=== PATIENT | male | born 1935 | race Caucasian/White ===

== ENCOUNTER 2018-04-11 09:09 | Observation (INO) | payer MEDICARE, OTHER ==
[2018-04-11] MEDS ORDERED: Aspirin 81 MG Tab.Chew PO ONE (09:11)
--- NOTE | 2018-04-11 09:12 | EDM.PDOC ---
ED HPI GENERAL MEDICAL PROBLEM - General Stated Complaint: CHEST PAIN Time Seen by Provider: 04/11/18 09:12 Source of Information: Reports: Patient - History of Present Illness INITIAL COMMENTS - FREE TEXT/NARRATIVE: HISTORY AND PHYSICAL: History of present illness: [Patient is a diabetic with history of CABG in the remote past and one stent apparently presents with some intermittent chest pain that he rates 2 out of 10 go into his left arm today he had taken a dose of nitroglycerin which had resolved the pain, he currently rates pain 0 out of 10 and is in no distress no fever nausea vomiting chills sweats no shortness of breath or diaphoresis] Review of systems: As per history of present illness and below otherwise all systems reviewed and negative. Past medical history: As per history of present illness and as reviewed below otherwise noncontributory. Surgical history: As per history of present illness and as reviewed below otherwise noncontributory. Social history: No reported history of drug or alcohol abuse. Family history: As per history of present illness and as reviewed below otherwise noncontributory. Physical exam: HEENT: Atraumatic, normocephalic, pupils reactive, negative for conjunctival pallor or scleral icterus, mucous membranes moist, throat clear, neck supple, nontender, trachea midline. Lungs: Clear to auscultation, breath sounds equal bilaterally, chest nontender. Heart: S1S2, regular, negative for clicks, rubs, or JVD. Abdomen: Soft, nondistended, nontender. Negative for masses or hepatosplenomegaly. Negative for costovertebral tenderness. Pelvis: Stable nontender. Genitourinary: Deferred. Rectal: Deferred. Extremities: Atraumatic, negative for cords or calf pain. Neurovascular unremarkable. Neuro: Awake, alert, oriented. Cranial nerves II through XII unremarkable. Cerebellum unremarkable. Motor and sensory unremarkable throughout. Exam nonfocal. Diagnostics: [BC CMP UA troponin lipase INR EKG Chest 1 view ] Therapeutics: [ normal saline 1 25 mL per hour Aspirin 324 mg chewable ] Impression: [Chest pain] Chronic history of baseline Definitive disposition and diagnosis as appropriate pending reevaluation and review of above. - Related Data Allergies Allergy/AdvReac Type Severity Reaction Status Date / Time Evbrexa-Gwr-Dbc Reductase Allergy Nausea and Unverified 04/11/18 09:17 Inhibitor Vomiting Sulfa (Sulfonamide Allergy Nausea and Unverified 04/11/18 09:17 Antibiotics) Vomiting Home Meds: Home Meds Arginine HCl [l-Arginine] 1,000 mg PO BID 01/14/17 [History] Ascorbic Acid [Vitamin C] 1,000 mg PO DAILY 01/14/17 [History] Aspirin 81 mg PO Q2D 01/14/17 [History] Ergocalciferol (Vitamin D2) [Vitamin D2] 2,000 intnl unit PO DAILY 01/14/17 [ History] Folic Acid 0.8 mg PO DAILY 01/14/17 [History] Glucosamine [Glucosamine Sulfate] 500 mg PO BID 01/14/17 [History] Isosorbide Mononitrate [Imdur] 60 mg PO BID 01/14/17 [History] Metoprolol Tartrate 75 mg PO BID 01/14/17 [History] Multivitamin [Multi-Vitamin Daily] 1 tab PO DAILY 01/14/17 [History] Nitroglycerin [IJP: Nitroglycerin] 0.4 mg SL ASDIRECTED PRN 01/14/17 [History] Ramipril 2.5 mg PO BID 01/14/17 [History] Ubidecarenone [Co Q-10] 100 mg PO DAILY 04/11/18 [History] Vitamin E 200 units PO DAILY 04/11/18 [History] amLODIPine [Norvasc] 2.5 mg PO DAILY 04/11/18 [History] metFORMIN [Glucophage] 500 mg PO BIDMEALS 04/11/18 [History] Past Medical History HEENT History: Reports: Impaired Vision Other HEENT History: wears glasses Cardiovascular History: Reports: Aneurysm, Bypass, CAD, High Cholesterol, Hypertension, Prior Cardiac Arrest Other Cardiovascular History: 3 heart attacks, heart chamber dysfunction, aortic heart valve narrowing, leaky mitral valve, abdominal aortic aneurysm Respiratory History: Reports: Other (See Below) Other Respiratory History: dust related pneumonia Gastrointestinal History: Reports: Hiatal Hernia Genitourinary History: Reports: Other (See Below) Other Genitourinary History: "kidney damage" Endocrine/Metabolic History: Reports: Other (See Below) Other Endocrine/Metabolic History: "borderline diabetic" - Past Surgical History HEENT Surgical History: Reports: Cataract Surgery Cardiovascular Surgical History: Reports: Coronary Artery Bypass, Other (See Below) GI Surgical History: Reports: Hernia, Abdominal Social & Family History - Caffeine Use Caffeine Use: Reports: Coffee ED ROS GENERAL - Review of Systems Review Of Systems: ROS reveals no pertinent complaints other than HPI. ED EXAM, GENERAL - Physical Exam Exam: See Below Course - Vital Signs Last Recorded V/S: Last Vital Signs Temp 97.9 F 04/11/18 09:13 Pulse 84 04/11/18 09:13 Resp 16 04/11/18 09:13 BP 129/72 04/11/18 09:13 Pulse Ox 98 04/11/18 09:13 - Orders/Labs/Meds Orders: Active Orders 24 hr Category Date Time Status EKG Documentation Completion [RC] STAT Care 04/11/18 09:11 Active INR,PT,PROTHROMBIN TIME [COAG] Stat Lab 04/11/18 09:20 Received UA W/MICROSCOPIC [URIN] Stat Lab 04/11/18 09:11 Ordered Sodium Chloride 0.9% [Normal Saline] 1,000 ml Med 04/11/18 09:15 Active IV STAT Medication Orders Sodium Chloride (Normal Saline) 1,000 mls @ 125 mls/hr IV STAT TAMEKA Last Admin: 04/11/18 09:24 Dose: 125 mls/hr Labs: Laboratory Tests 04/11/18 04/11/18 Range/Units 09:20 09:20 WBC 7.58 (4.0-11.0) K/uL RBC 3.46 L (4.50-5.90) M/uL Hgb 11.3 L (13.0-17.0) g/dL Hct 34.9 L (38.0-50.0) % MCV 100.9 H (80.0-98.0) fL MCH 32.7 H (27.0-32.0) pg MCHC 32.4 (31.0-37.0) g/dL RDW Std Deviation 56.2 (28.0-62.0) fl RDW Coeff of Mark 16 H (11.0-15.0) % Plt Count 206 (150-400) K/uL MPV 9.70 (7.40-12.00) fL Neut % (Auto) 74.5 (48.0-80.0) % Lymph % (Auto) 14.1 L (16.0-40.0) % [place] % (Auto) 7.8 (0.0-15.0) % Eos % (Auto) 3.2 (0.0-7.0) % Baso % (Auto) 0.4 (0.0-1.5) % Neut # (Auto) 5.7 (1.4-5.7) K/uL Lymph # (Auto) 1.1 (0.6-2.4) K/uL [place] # (Auto) 0.6 (0.0-0.8) K/uL Eos # (Auto) 0.2 (0.0-0.7) K/uL Baso # (Auto) 0.0 (0.0-0.1) K/uL Nucleated RBC % 0.0 /100WBC Nucleated RBCs # 0 K/uL Sodium 137 (136-148) mmol/L Potassium 4.6 (3.5-5.1) mmol/L Chloride 105 (98-107) mmol/L Carbon Dioxide 22.6 (21.0-32.0) mmol/L BUN 37 H (7.0-18.0) mg/dL Creatinine 1.2 (0.8-1.3) mg/dL Est Cr Clr Drug Dosing 42.84 mL/min Estimated GFR (MDRD) 58.3 ml/min Glucose 154 H (74-106) mg/dL Calcium 9.3 (8.5-10.1) mg/dL Total Bilirubin 0.3 (0.2-1.0) mg/dL AST 22 (15-37) IU/L ALT 19 (14-63) IU/L Alkaline Phosphatase 90 (46-116) U/L Troponin I < 0.050 (0.000-0.056) ng/mL Total Protein 7.3 (6.4-8.2) g/dL Albumin 3.5 (3.4-5.0) g/dL Globulin 3.8 H (2.0-3.5) g/dL Albumin/Globulin Ratio 0.9 L (1.3-2.8) Lipase 259 (73-393) U/L Meds: Medications Generic Name Dose Route Start Last Admin Trade Name Freq PRN Reason Stop Dose Admin Sodium Chloride 1,000 mls @ 125 mls/hr 04/11/18 09:15 04/11/18 09:24 Normal Saline IV 125 mls/hr STAT TAMEKA Administration Discontinued Medications Generic Name Dose Route Start Last Admin Trade Name Freq PRN Reason Stop Dose Admin Aspirin 324 mg 04/11/18 09:11 04/11/18 09:24 Aspirin PO 04/11/18 09:12 324 mg ONETIME ONE Administration Departure - Departure Time of Disposition: 10:53 Disposition: Refer to Observation Condition: Fair Clinical Impression: Chest pain - Discharge Information - My Orders Last 24 Hours: My Active Orders 04/11/18 09:11 EKG Documentation Completion [RC] STAT UA W/MICROSCOPIC [URIN] Stat 04/11/18 09:15 Sodium Chloride 0.9% [Normal Saline] 1,000 ml IV STAT 04/11/18 09:20 INR,PT,PROTHROMBIN TIME [COAG] Stat - Assessment/Plan Last 24 Hours: My Active Orders 04/11/18 09:11 EKG Documentation Completion [RC] STAT UA W/MICROSCOPIC [URIN] Stat 04/11/18 09:15 Sodium Chloride 0.9% [Normal Saline] 1,000 ml IV STAT 04/11/18 09:20 INR,PT,PROTHROMBIN TIME [COAG] Stat
[2018-04-11] MEDS ORDERED: Sodium Chloride 0.9% 1,000 ML IV SCH (09:15)
--- NOTE | 2018-04-11 10:03 | CR ---
EXAMINATION: Portable chest radiograph. HISTORY: Pain. Comparison: 01/13/2017. FINDINGS: The trachea is midline. The heart is borderline in size. The cardiomediastinal silhouette is within n ormal limits. No pulmonary infiltrates, effusions or pneumothorax. Median sternotomy wires are noted. Osseous structures appear unremarkable. IMPRESSION: No acute cardiopulmonary process.
[2018-04-11 10:11] LABS: CHLORIDE,CL 105 mmol/L (98-107); SODIUM,NA 137 mmol/L (136-148)
[2018-04-11] MEDS ORDERED: Sodium Chloride 0.9% 10 ML Syringe FLUSH PRN (12:24)
[2018-04-11] MEDS ORDERED: Sodium Chloride 0.9% 2.5 ML Syringe FLUSH PRN (12:24)
[2018-04-11] MEDS ORDERED: Morphine 10 MG/ML Syringe IVPUSH PRN (12:24)
[2018-04-11] MEDS ORDERED: Enoxaparin 40 MG/0.4 ML Syringe SUBCUT SCH (12:30)
[2018-04-11] MEDS ORDERED: Nitroglycerin 2% Oint 1 GM UD Packet TOP PRN (12:58)
[2018-04-11 16:45] VITALS: BP 104/73
[2018-04-11] MEDS ORDERED: Nitroglycerin 0.4 MG Tab.SL SL PRN (18:29)
[2018-04-11] MEDS ORDERED: [UNRECOGNIZED DRUG - REMARK] PO SCH (21:00)
[2018-04-11] MEDS ORDERED: [UNRECOGNIZED DRUG - REMARK] PO SCH (21:00)
[2018-04-11] MEDS ORDERED: Metoprolol Tartrate 25 MG Tab PO SCH (21:00)
[2018-04-11] MEDS ORDERED: Isosorbide Mononitrate 60 MG Tab.ER PO SCH (21:00)
--- NOTE | 2018-04-11 21:51 | PCM.SN ---
- Free Text/Narrative Note: I was asked to see the patient at 8 pm, I went to see the patient with hospitalist. I had asked him about the history, and about the presenting symptoms. All of the sudden, he stated he was done with this, he stated clearly " I want to go home now", and he requested to be released and wrist band to be removed. The patient left without being examined by me and without complete history.
--- NOTE | 2018-04-12 00:18 | PCM.HP ---
H&P History of Present Illness - General Date of Service: 04/11/18 Admit Problem/Dx: Admission Diagnosis/Problem Admission Diagnosis/Problem Chest pain Patient 82 y old man with past medical history of DM, HTN, CABG 40 y ago , S/p MS 40 y ago who follows up with Doctor Lopez in [facility] presented to Er due to chest pain and palpitations for less than 1 minute , chest pain was rated 2/10, intensity , described as discomfort, no irradiation. Patient states that he called his Investment Executive and was told from his office to go to ER . Patient also states that he has a thoracic aortic aneurysm and he declined any surgeries and is being managed by Bp control and f/up. Source of Information: Patient History Limitations: Reports: No Limitations - History of Present Illness Onset of Symptoms: Reports: Today, Sudden Duration of Symptoms: Reports: Minutes: Location: Reports: Chest - Related Data Allergies/Adverse Reactions: Allergies Allergy/AdvReac Type Severity Reaction Status Date / Time Kjvoroq-Rkw-Hgr Reductase Allergy Nausea and Unverified 04/11/18 09:17 Inhibitor Vomiting Sulfa (Sulfonamide Allergy Nausea and Unverified 04/11/18 09:17 Antibiotics) Vomiting Home Medications: Home Meds Arginine HCl [l-Arginine] 1,000 mg PO BID 01/14/17 [History] Ascorbic Acid [Vitamin C] 1,000 mg PO DAILY 01/14/17 [History] Aspirin 81 mg PO Q2D 01/14/17 [History] Ergocalciferol (Vitamin D2) [Vitamin D2] 2,000 intnl unit PO DAILY 01/14/17 [ History] Folic Acid 0.8 mg PO DAILY 01/14/17 [History] Glucosamine [Glucosamine Sulfate] 500 mg PO BID 01/14/17 [History] Isosorbide Mononitrate [Imdur] 60 mg PO BID 01/14/17 [History] Metoprolol Tartrate 75 mg PO BID 01/14/17 [History] Multivitamin [Multi-Vitamin Daily] 1 tab PO DAILY 01/14/17 [History] Nitroglycerin [IJP: Nitroglycerin] 0.4 mg SL ASDIRECTED PRN 01/14/17 [History] Ramipril 2.5 mg PO BID 01/14/17 [History] Ubidecarenone [Co Q-10] 100 mg PO DAILY 04/11/18 [History] Vitamin E 200 units PO DAILY 04/11/18 [History] amLODIPine [Norvasc] 2.5 mg PO DAILY 04/11/18 [History] metFORMIN [Glucophage] 500 mg PO BIDMEALS 04/11/18 [History] Past Medical History HEENT History: Reports: Impaired Vision Other HEENT History: wears glasses Cardiovascular History: Reports: Aneurysm, Bypass, CAD, High Cholesterol, Hypertension, Prior Cardiac Arrest Other Cardiovascular History: 3 heart attacks, heart chamber dysfunction, aortic heart valve narrowing, leaky mitral valve, abdominal aortic aneurysm Respiratory History: Reports: Other (See Below) Other Respiratory History: dust related pneumonia Gastrointestinal History: Reports: Hiatal Hernia Genitourinary History: Reports: Other (See Below) Other Genitourinary History: "kidney damage" Endocrine/Metabolic History: Reports: Other (See Below) Other Endocrine/Metabolic History: "borderline diabetic" - Past Surgical History HEENT Surgical History: Reports: Cataract Surgery Cardiovascular Surgical History: Reports: Coronary Artery Bypass, Other (See Below) GI Surgical History: Reports: Hernia, Abdominal Oncologic Surgical History: Reports: None Social & Family History - Family History Cardiac: Reports: CAD Endocrine/Metabolic: Reports: Diabetes, Type I - Tobacco Use Smoking Status *Q: Never Smoker Years of Tobacco use: 50 Packs/Tins Daily: 1 Used Tobacco, but Quit: Yes Month/Year Tobacco Last Used: 10 years ago - Caffeine Use Caffeine Use: Reports: Coffee - Recreational Drug Use Recreational Drug Use: No H&P Review of Systems - Review of Systems: Review Of Systems: See Below General: Reports: No Symptoms HEENT: Reports: No Symptoms Pulmonary: Reports: No Symptoms Cardiovascular: Reports: Palpitations Gastrointestinal: Reports: No Symptoms Genitourinary: Reports: No Symptoms Musculoskeletal: Reports: No Symptoms Skin: Reports: No Symptoms Exam - Exam Exam: See Below - Vital Signs Vital Signs: Last Vital Signs Temp 97.6 F 04/11/18 16:24 Pulse 83 04/11/18 16:24 Resp 16 04/11/18 16:24 BP 104/73 04/11/18 16:43 Pulse Ox 97 04/11/18 16:24 Weight: 141 lb 12.116 oz - Exam General: Alert, Oriented HEENT: Conjunctiva Clear Neck: Supple, Trachea Midline Lungs: Clear to Auscultation, Normal Respiratory Effort Cardiovascular: Regular Rate, Regular Rhythm, Normal S1, Normal S2 GI/Abdominal Exam: Normal Bowel Sounds, Soft, Non-Tender, No Organomegaly Back Exam: Normal Inspection Extremities: Normal Inspection Skin: Warm, Dry Neurological: Cranial Nerves Intact Neuro Extensive - Mental Status: Alert, Oriented x3 Psychiatric: Alert - Patient Data Lab Results Last 24 hrs: Laboratory Results - last 24 hr 04/11/18 04/11/18 04/11/18 Range/Units 09:20 09:20 09:20 WBC 7.58 (4.0-11.0) K/uL RBC 3.46 L (4.50-5.90) M/uL Hgb 11.3 L (13.0-17.0) g/dL Hct 34.9 L (38.0-50.0) % MCV 100.9 H (80.0-98.0) fL MCH 32.7 H (27.0-32.0) pg MCHC 32.4 (31.0-37.0) g/dL RDW Std Deviation 56.2 (28.0-62.0) fl RDW Coeff of Mark 16 H (11.0-15.0) % Plt Count 206 (150-400) K/uL MPV 9.70 (7.40-12.00) fL Neut % (Auto) 74.5 (48.0-80.0) % Lymph % (Auto) 14.1 L (16.0-40.0) % [place] % (Auto) 7.8 (0.0-15.0) % Eos % (Auto) 3.2 (0.0-7.0) % Baso % (Auto) 0.4 (0.0-1.5) % Neut # (Auto) 5.7 (1.4-5.7) K/uL Lymph # (Auto) 1.1 (0.6-2.4) K/uL [place] # (Auto) 0.6 (0.0-0.8) K/uL Eos # (Auto) 0.2 (0.0-0.7) K/uL Baso # (Auto) 0.0 (0.0-0.1) K/uL Nucleated RBC % 0.0 /100WBC Nucleated RBCs # 0 K/uL INR 0.98 Sodium 137 (136-148) mmol/L Potassium 4.6 (3.5-5.1) mmol/L Chloride 105 (98-107) mmol/L Carbon Dioxide 22.6 (21.0-32.0) mmol/L BUN 37 H (7.0-18.0) mg/dL Creatinine 1.2 (0.8-1.3) mg/dL Est Cr Clr Drug Dosing 42.84 mL/min Estimated GFR (MDRD) 58.3 ml/min Glucose 154 H (74-106) mg/dL Calcium 9.3 (8.5-10.1) mg/dL Total Bilirubin 0.3 (0.2-1.0) mg/dL AST 22 (15-37) IU/L ALT 19 (14-63) IU/L Alkaline Phosphatase 90 (46-116) U/L Troponin I < 0.050 (0.000-0.056) ng/mL Total Protein 7.3 (6.4-8.2) g/dL Albumin 3.5 (3.4-5.0) g/dL Globulin 3.8 H (2.0-3.5) g/dL Albumin/Globulin Ratio 0.9 L (1.3-2.8) Lipase 259 (73-393) U/L 04/11/18 Range/Units 14:38 WBC (4.0-11.0) K/uL RBC (4.50-5.90) M/uL Hgb (13.0-17.0) g/dL Hct (38.0-50.0) % MCV (80.0-98.0) fL MCH (27.0-32.0) pg MCHC (31.0-37.0) g/dL RDW Std Deviation (28.0-62.0) fl RDW Coeff of Mark (11.0-15.0) % Plt Count (150-400) K/uL MPV (7.40-12.00) fL Neut % (Auto) (48.0-80.0) % Lymph % (Auto) (16.0-40.0) % [place] % (Auto) (0.0-15.0) % Eos % (Auto) (0.0-7.0) % Baso % (Auto) (0.0-1.5) % Neut # (Auto) (1.4-5.7) K/uL Lymph # (Auto) (0.6-2.4) K/uL [place] # (Auto) (0.0-0.8) K/uL Eos # (Auto) (0.0-0.7) K/uL Baso # (Auto) (0.0-0.1) K/uL Nucleated RBC % /100WBC Nucleated RBCs # K/uL INR Sodium (136-148) mmol/L Potassium (3.5-5.1) mmol/L Chloride (98-107) mmol/L Carbon Dioxide (21.0-32.0) mmol/L BUN (7.0-18.0) mg/dL Creatinine (0.8-1.3) mg/dL Est Cr Clr Drug Dosing mL/min Estimated GFR (MDRD) ml/min Glucose (74-106) mg/dL Calcium (8.5-10.1) mg/dL Total Bilirubin (0.2-1.0) mg/dL AST (15-37) IU/L ALT (14-63) IU/L Alkaline Phosphatase (46-116) U/L Troponin I < 0.050 (0.000-0.056) ng/mL Total Protein (6.4-8.2) g/dL Albumin (3.4-5.0) g/dL Globulin (2.0-3.5) g/dL Albumin/Globulin Ratio (1.3-2.8) Lipase (73-393) U/L Result Diagrams: 04/11/18 09:20 04/11/18 09:20 - Problem List (1) Chest pain SNOMED Code(s): 16950038 ICD Code: R07.9 - CHEST PAIN, UNSPECIFIED Status: Acute (2) Heart palpitations SNOMED Code(s): 98794775 ICD Code: R00.2 - PALPITATIONS Status: Acute (3) Anemia SNOMED Code(s): 236779312 ICD Code: D64.9 - ANEMIA, UNSPECIFIED Status: Acute (4) Aneurysm, thoracic aortic SNOMED Code(s): 335218724 ICD Code: I71.2 - THORACIC AORTIC ANEURYSM, WITHOUT RUPTURE Status: Acute (5) Hx of CABG SNOMED Code(s): 586158508, 440510168 ICD Code: Z95.1 - PRESENCE OF AORTOCORONARY BYPASS GRAFT Status: Acute Problem List Initiated/Reviewed/Updated: Yes Orders Last 24hrs: Active Orders 24 hr Category Date Time Status Admission Status [Patient Status] [ADT] Stat ADT 04/11/18 10:54 Active Cardiac Monitoring [RC] Q8H Care 04/11/18 12:26 Active EKG Documentation Completion [RC] STAT Care 04/11/18 09:11 Active Oxygen Therapy [RC] PRN Care 04/11/18 12:24 Active Ready for Discharge [RC] PER UNIT ROUTINE Care 04/11/18 20:50 Active Up ad Lisette [RC] ASDIRECTED Care 04/11/18 12:24 Active VTE/DVT Education [RC] PER UNIT ROUTINE Care 04/11/18 12:24 Active Vital Signs [RC] Q4H Care 04/11/18 12:24 Active Peripheral IV Insertion Adult [OM.PC] Routine Oth 04/11/18 12:24 Ordered Saline Lock Insert [OM.PC] Routine Oth 04/11/18 12:24 Ordered Sequential Compression Device [OM.PC] Per Unit Routine Oth 04/11/18 12:27 Ordered Resuscitation Status Routine Resus Stat 04/11/18 12:24 Ordered Assessment/Plan Comment:: Assessment and plan 1) Chest pain r/o acs- f/up 3 sets of cardiac enzymes , continue aspirin 81 mg po daily , lipid profile , Hemoglobin A1c 2) CAD- on metoprolol 75 mg po BID isosorbid mononitrate 60 mg po bid aspirin 81 mg po daily Ramipril 2.5 mg po daily, amlodipine 2.5 mg po daily 3) Palpitations- PVC on heart monitor, HR-60-80 at rest is going up to 100BPM with ambulation. Cardiology was asked to consult, patient refused. 4) DM - stable : Metformin 500 mg po BID. DVt prof : enoxaparin 40 mg sq. I have called patient Cardiologyst in [facility] and spoke with Tawnya at the patient request. She recommended us to fax his medical records from this hospitalization to his cardiologyst in [facility]. 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 Investment Executive from [place] went to discuss with patient and offered to review his medication and treatment but patient refused. 2 sets of cardiac enzymes were negative , with current presentation of symptoms I had low suspicion of ACS and patient was discharged home to f/up with his PCP and disaster response director.
[2018-04-12] MEDS ORDERED: metFORMIN 500 MG Tab PO SCH (08:00)
[2018-04-12] MEDS ORDERED: Aspirin 81 MG Tab.Chew PO SCH (09:00)
[2018-04-12] MEDS ORDERED: FOLIC ACID PO SCH (09:00)
[2018-04-12] MEDS ORDERED: [UNRECOGNIZED DRUG - REMARK] PO SCH (09:00)
[2018-04-12] MEDS ORDERED: Multivitamin Tab PO SCH (09:00)
[2018-04-12] MEDS ORDERED: [UNRECOGNIZED DRUG - REMARK] PO SCH (09:00)
[2018-04-12] MEDS ORDERED: Ascorbic Acid 500 MG Tab PO SCH (09:00)
[2018-04-12] MEDS ORDERED: [UNRECOGNIZED DRUG - REMARK] PO SCH (09:00)
[2018-04-12] MEDS ORDERED: amLODIPine 2.5 MG Tab PO SCH (09:00)
[2018-04-12] MEDS ORDERED: [UNRECOGNIZED DRUG - OTHER] PO SCH (09:00)
== END 2018-04-11 21:20 | disposition home or self-care (01) ==
LOC: MW.ED 09:09 → MW.MS 11:42
PROVIDERS: ADMIT Internal Medicine; ATTEND Internal Medicine
DX: R07.9 Chest pain, unspecified (principal); I49.3 Ventricular premature depolarization; E11.9 Type 2 diabetes mellitus without complications; I10 Essential (primary) hypertension; I25.2 Old myocardial infarction; I25.10 Atherosclerotic heart disease of native coronary artery without angina pectoris; E78.00 Pure hypercholesterolemia, unspecified; D64.9 Anemia, unspecified; I71.2 Thoracic aortic aneurysm, without rupture; Z95.1 Presence of aortocoronary bypass graft; Z88.8 Allergy status to other drugs, medicaments and biological substances; Z88.2 Allergy status to sulfonamides; Z79.899 Other long term (current) drug therapy; Z79.82 Long term (current) use of aspirin; Z79.84 Long term (current) use of oral hypoglycemic drugs
CPT/HCPCS: 36415; 71045; 80053; 83690; 84484; 85025; 85610; 93005; 96360; 96361; 99285; A9270; J7040; 96372; 99283; G0378; J1650

== ENCOUNTER 2018-05-18 04:22 | Observation (INO) | payer MEDICARE, OTHER ==
[2018-05-18] MEDS ORDERED: methylPREDNISolone Sodium Succinate 125 MG/2 ML SDV IVPUSH ONE (04:28)
[2018-05-18] MEDS ORDERED: Aspirin 81 MG Tab.Chew PO ONE (04:28)
[2018-05-18] MEDS ORDERED: Albuterol/Ipratropium 3.0-0.5 MG/3 ML Neb Soln NEB ONE (04:28)
[2018-05-18] MEDS ORDERED: Nitroglycerin 2% Oint 1 GM UD Packet TOP ONE (04:28)
[2018-05-18] MEDS ORDERED: Sodium Chloride 0.9% 10 ML Syringe FLUSH PRN (04:30)
[2018-05-18] MEDS ORDERED: Sodium Chloride 0.9% 2.5 ML Syringe FLUSH PRN (04:30)
--- NOTE | 2018-05-18 04:35 | EDM.PDOC ---
ED HPI GENERAL MEDICAL PROBLEM - General Stated Complaint: AMBULANCE Time Seen by Provider: 05/18/18 04:26 - History of Present Illness INITIAL COMMENTS - FREE TEXT/NARRATIVE: HISTORY AND PHYSICAL: History of present illness: The patient is an 82-year-old male who follows here with Dr. Moran as well as with Dr. 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 He called the ambulance for shortness of breath when this been going on for the last one week but seemed to be worse yesterday and for his COPD he does not have any inhalers to use. He fell like he was wheezing but he has not had a cough with phlegm fevers or abdominal pain vomiting or upper respiratory symptoms. The ambulance was deployed and in route he denied chest pain and when he arrived here initially he said he had no chest discomfort and that he told nursing a slight discomfort 12/01. The patient has nitroglycerin that he would take at home normally for his chest pain. Patient also says that he's been having some swelling of his ankles and feet for the last 1 week which is new for him. He has no leg pain or feet pain. The patient says he saw Dr. Lopez about a week ago and was told that his aortic valve was getting worse but it still was not critical and he did not have any medication change. Patient here in the ED is interactive and talkative and is more concerned about his breathing. Patient has been eating and drinking normally and does not have any urinary complaints. Please note that the patient was admitted here last month and after being in the hospital for a short time the hospitalist and the vrt mechanic went to see him and he asked to be released. I have also personally seen this patient back in December of this year when he came in with active chest pain and he was transferred to [facility] in [place] under the care of the hospitalist with Dr. Lopez involved. Review of systems: As per history of present illness and below otherwise all systems reviewed and negative. Past medical history: As per history of present illness and as reviewed below otherwise noncontributory. Surgical history: As per history of present illness and as reviewed below otherwise noncontributory. Social history: No reported history of drug or alcohol abuse. Family history: As per history of present illness and as reviewed below otherwise noncontributory. Physical exam: General: Well-developed well-nourished man who is nontoxic and not breathless on my evaluation. Vital signs are noted by me HEENT: Atraumatic, normocephalic, pupils reactive, negative for conjunctival pallor or scleral icterus, mucous membranes moist, throat clear, neck supple, nontender, trachea midline. Lungs: The patient has some abdominal work of breathing but no intercostal muscle use and no stridor but has expiratory wheezing throughout all lung truong and some scattered rales at the bases, breath sounds equal bilaterally, chest nontender. Heart: S1S2, regular rhythm and slightly tachycardic rate of my evaluation with some ectopy, a soft systolic ejection murmurs heard at left sternal border but is not an overwhelming AST murmur Abdomen: Soft, mild soft distention and hypoactive bowel sounds nontender. Negative for masses or hepatosplenomegaly. Negative for costovertebral tenderness. There is some tympany on percussion Pelvis: Stable nontender. Genitourinary: Deferred. Rectal: Deferred. Extremities: Atraumatic, negative for cords or calf pain. Neurovascular unremarkable. There is edema of his ankles and feet bilaterally but this does not extend into the pretibial area and the catheter have no leg asymmetry or tenderness. Neuro: Awake, alert, oriented. Cranial nerves II through XII unremarkable. Cerebellum unremarkable. Motor and sensory unremarkable throughout. Exam nonfocal. Skin: Overall pale appearance but there is no diaphoresis and skin turgor is normal and there are no rashes or lesions overtly seen Diagnostics: EKG CBC CMP INR and BNP troponin UA chest x-ray magnesium level Therapeutics: IV O2 monitor aspirin duo neb Solu-Medrol nitro paste Lasix Please note the patient refuses the aspirin because he says that if he takes more than just 81 mg a day he will get bloody noses and that is what his doctor told him to do. EKG of today was compared to the one performed on April 11 and the morphology is incredibly similar with the exception of the T-wave inversion previously seen in the lateral leads is now flattened. 0447: Currently patient is receiving his duo neb and just receive his Nitropaste and says he has no chest pain. His breathing is improving. 0530: TESTING results were discussed with the patient and the need for admission was also discussed with him. Although he is improving with his history of chronic renal disease aortic stenosis he needs gentle diuresis as an inpatient in the hospital. 0535: Case was discussed with our hospitalist Dr. Son and she accepts the patient for admission. She would like observation at this time. Impression: Dyspnea/CHF exacerbation, COPD exacerbation Definitive disposition and diagnosis as appropriate pending reevaluation and review of above. chest Pain Score (Numeric/FACES): 2 - Related Data Allergies Allergy/AdvReac Type Severity Reaction Status Date / Time [id number] Reductase Allergy Nausea and Unverified 05/18/18 04:42 Inhibitor Vomiting Sulfa (Sulfonamide Allergy Nausea and Unverified 05/18/18 04:42 Antibiotics) Vomiting Home Meds: Home Meds Arginine HCl [l-Arginine] 1,000 mg PO BID 01/14/17 [History] Ascorbic Acid [Vitamin C] 1,000 mg PO DAILY 01/14/17 [History] Aspirin 81 mg PO ASDIRECTED 01/14/17 [History] Folic Acid 800 mcg PO DAILY 01/14/17 [History] Glucosamine [Glucosamine Sulfate] 500 mg PO BID 01/14/17 [History] Isosorbide Mononitrate [Imdur] 60 mg PO BID 01/14/17 [History] Metoprolol Tartrate 75 mg PO BID 01/14/17 [History] Multivitamin [Multi-Vitamin Daily] 0 mg PO DAILY 01/14/17 [History] Nitroglycerin [IJP: Nitroglycerin] 0.4 mg SL ASDIRECTED PRN 01/14/17 [History] Ramipril 2.5 mg PO BID 01/14/17 [History] Vitamin E 200 units PO DAILY 04/11/18 [History] amLODIPine [Norvasc] 2.5 mg PO DAILY 04/11/18 [History] metFORMIN [Glucophage] 500 mg PO BIDMEALS 04/11/18 [History] Cholecalciferol (Vitamin D3) [Vitamin D3] 2,000 units PO DAILY 05/18/18 [History ] Ubidecarenone [Co Q-10] 100 mg PO DAILY 05/18/18 [History] Past Medical History HEENT History: Reports: Impaired Vision Other HEENT History: wears glasses Cardiovascular History: Reports: Aneurysm, Bypass, CAD, High Cholesterol, Hypertension, Prior Cardiac Arrest Other Cardiovascular History: 3 heart attacks, heart chamber dysfunction, aortic heart valve narrowing, leaky mitral valve, abdominal aortic aneurysm Respiratory History: Reports: Other (See Below) Other Respiratory History: dust related pneumonia Gastrointestinal History: Reports: Hiatal Hernia Genitourinary History: Reports: Other (See Below) Other Genitourinary History: "kidney damage" Endocrine/Metabolic History: Reports: Other (See Below) Other Endocrine/Metabolic History: "borderline diabetic" - Past Surgical History HEENT Surgical History: Reports: Cataract Surgery Cardiovascular Surgical History: Reports: Coronary Artery Bypass, Other (See Below) GI Surgical History: Reports: Hernia, Abdominal Oncologic Surgical History: Reports: None Social & Family History - Family History Cardiac: Reports: CAD Endocrine/Metabolic: Reports: Diabetes, Type I - Caffeine Use Caffeine Use: Reports: Coffee ED ROS GENERAL - Review of Systems Review Of Systems: ROS reveals no pertinent complaints other than HPI. ED EXAM, GENERAL - Physical Exam Exam: See Below (See dictation) Course - Vital Signs Last Recorded V/S: Last Vital Signs Temp 36.9 C 05/18/18 04:22 Pulse 105 H 05/18/18 05:26 Resp 20 05/18/18 05:26 BP 117/76 05/18/18 05:26 Pulse Ox 96 05/18/18 05:26 - Orders/Labs/Meds Orders: Active Orders 24 hr Category Date Time Status Patient Status [ADT] Stat ADT 05/18/18 05:40 Ordered Cardiac Monitoring [RC] . DIRECTED Care 05/18/18 04:29 Active EKG Documentation Completion [RC] STAT Care 05/18/18 04:29 Active Oxygen Therapy, ED [RC] ASDIRECTED Care 05/18/18 04:29 Active Pulse Oximetry [RC] ASDIRECTED Care 05/18/18 04:29 Active RT Aerosol Therapy [RC] ASDIRECTED Care 05/18/18 04:30 Active Chest 1V Frontal [CR] Stat Exams 05/18/18 04:30 Taken UA W/MICROSCOPIC [URIN] Stat Lab 05/18/18 04:29 Ordered Sodium Chloride 0.9% [Saline Flush] Med 05/18/18 04:30 Active 10 ml FLUSH ASDIRECTED PRN Sodium Chloride 0.9% [Saline Flush] Med 05/18/18 04:30 Active 2.5 ml FLUSH ASDIRECTED PRN Saline Lock Insert [OM.PC] Stat Oth 05/18/18 04:29 Ordered Medication Orders Sodium Chloride (Saline Flush) 10 ml FLUSH ASDIRECTED PRN PRN Reason: Keep Vein Open Sodium Chloride (Saline Flush) 2.5 ml FLUSH ASDIRECTED PRN PRN Reason: Keep Vein Open Labs: Laboratory Tests 05/18/18 05/18/18 05/18/18 Range/Units 04:30 04:30 04:30 WBC 13.05 H (4.0-11.0) K/uL RBC 3.60 L (4.50-5.90) M/uL Hgb 12.6 L (13.0-17.0) g/dL Hct 37.5 L (38.0-50.0) % MCV 104.2 H (80.0-98.0) fL MCH 35.0 H (27.0-32.0) pg MCHC 33.6 (31.0-37.0) g/dL RDW Std Deviation 58.9 (28.0-62.0) fl RDW Coeff of Mark 16 H (11.0-15.0) % Plt Count 190 (150-400) K/uL MPV 10.20 (7.40-12.00) fL Neut % (Auto) 80.1 H (48.0-80.0) % Lymph % (Auto) 13.0 L (16.0-40.0) % [place] % (Auto) 5.1 (0.0-15.0) % Eos % (Auto) 1.4 (0.0-7.0) % Baso % (Auto) 0.4 (0.0-1.5) % Neut # (Auto) 10.5 H (1.4-5.7) K/uL Lymph # (Auto) 1.7 (0.6-2.4) K/uL [place] # (Auto) 0.7 (0.0-0.8) K/uL Eos # (Auto) 0.2 (0.0-0.7) K/uL Baso # (Auto) 0.1 (0.0-0.1) K/uL Nucleated RBC % 0.0 /100WBC Nucleated RBCs # 0 K/uL INR 1.02 Sodium 141 (136-148) mmol/L Potassium 4.0 (3.5-5.1) mmol/L Chloride 104 (98-107) mmol/L Carbon Dioxide 21.7 (21.0-32.0) mmol/L BUN 34 H (7.0-18.0) mg/dL Creatinine 1.4 H (0.8-1.3) mg/dL Est Cr Clr Drug Dosing 35.24 mL/min Estimated GFR (MDRD) 48.8 ml/min Glucose 198 H (74-106) mg/dL Calcium 9.2 (8.5-10.1) mg/dL Magnesium 1.9 (1.8-2.4) mg/dL Total Bilirubin 0.6 (0.2-1.0) mg/dL AST 26 (15-37) IU/L ALT 36 (14-63) IU/L Alkaline Phosphatase 97 (46-116) U/L Troponin I < 0.050 (0.000-0.056) ng/mL B-Natriuretic Peptide (<100) PG/ML Total Protein 7.7 (6.4-8.2) g/dL Albumin 4.0 (3.4-5.0) g/dL Globulin 3.7 H (2.0-3.5) g/dL Albumin/Globulin Ratio 1.1 L (1.3-2.8) 05/18/18 Range/Units 04:30 WBC (4.0-11.0) K/uL RBC (4.50-5.90) M/uL Hgb (13.0-17.0) g/dL Hct (38.0-50.0) % MCV (80.0-98.0) fL MCH (27.0-32.0) pg MCHC (31.0-37.0) g/dL RDW Std Deviation (28.0-62.0) fl RDW Coeff of Mark (11.0-15.0) % Plt Count (150-400) K/uL MPV (7.40-12.00) fL Neut % (Auto) (48.0-80.0) % Lymph % (Auto) (16.0-40.0) % [place] % (Auto) (0.0-15.0) % Eos % (Auto) (0.0-7.0) % Baso % (Auto) (0.0-1.5) % Neut # (Auto) (1.4-5.7) K/uL Lymph # (Auto) (0.6-2.4) K/uL [place] # (Auto) (0.0-0.8) K/uL Eos # (Auto) (0.0-0.7) K/uL Baso # (Auto) (0.0-0.1) K/uL Nucleated RBC % /100WBC Nucleated RBCs # K/uL INR Sodium (136-148) mmol/L Potassium (3.5-5.1) mmol/L Chloride (98-107) mmol/L Carbon Dioxide (21.0-32.0) mmol/L BUN (7.0-18.0) mg/dL Creatinine (0.8-1.3) mg/dL Est Cr Clr Drug Dosing mL/min Estimated GFR (MDRD) ml/min Glucose (74-106) mg/dL Calcium (8.5-10.1) mg/dL Magnesium (1.8-2.4) mg/dL Total Bilirubin (0.2-1.0) mg/dL AST (15-37) IU/L ALT (14-63) IU/L Alkaline Phosphatase (46-116) U/L Troponin I (0.000-0.056) ng/mL B-Natriuretic Peptide 2464 H (<100) PG/ML Total Protein (6.4-8.2) g/dL Albumin (3.4-5.0) g/dL Globulin (2.0-3.5) g/dL Albumin/Globulin Ratio (1.3-2.8) Meds: Medications Generic Name Dose Route Start Last Admin Trade Name Freq PRN Reason Stop Dose Admin Sodium Chloride 10 ml 05/18/18 04:30 Saline Flush FLUSH ASDIRECTED PRN Keep Vein Open Sodium Chloride 2.5 ml 05/18/18 04:30 Saline Flush FLUSH ASDIRECTED PRN Keep Vein Open Discontinued Medications Generic Name Dose Route Start Last Admin Trade Name Douglasq PRN Reason Stop Dose Admin Albuterol/Ipratropium 3 ml 05/18/18 04:28 05/18/18 04:39 Duoneb 3.0-0.5 Mg/3 Ml NEB 05/18/18 04:29 3 ml ONETIME ONE Administration Aspirin 324 mg 05/18/18 04:28 05/18/18 04:46 Aspirin PO 05/18/18 04:29 Not Given ONETIME ONE Furosemide 20 mg 05/18/18 05:32 05/18/18 05:41 Lasix IVPUSH 05/18/18 05:33 20 mg NOW ONE Administration Methylprednisolone Sodium Succinate 125 mg 05/18/18 04:28 05/18/18 04:39 Solu-Medrol IVPUSH 05/18/18 04:29 125 mg ONETIME ONE Administration Nitroglycerin 0.5 gm 05/18/18 04:28 05/18/18 04:39 Nitro-Bid 2% TOP 05/18/18 04:29 0.5 gm ONETIME ONE Administration Departure - Departure Time of Disposition: 05:46 Disposition: Refer to Observation Condition: Good Clinical Impression: COPD exacerbation, Dyspnea and respiratory abnormalities CHF exacerbation Qualifiers: Heart failure type: unspecified Qualified Code(s): I50.9 - Heart failure, unspecified - Discharge Information Referrals: PCP,None [Primary Care Provider] - - My Orders Last 24 Hours: My Active Orders 05/18/18 04:29 Cardiac Monitoring [RC] . DIRECTED EKG Documentation Completion [RC] STAT Oxygen Therapy, ED [RC] ASDIRECTED Pulse Oximetry [RC] ASDIRECTED UA W/MICROSCOPIC [URIN] Stat Saline Lock Insert [OM.PC] Stat 05/18/18 04:30 RT Aerosol Therapy [RC] ASDIRECTED Chest 1V Frontal [CR] Stat Sodium Chloride 0.9% [Saline Flush] 10 ml FLUSH ASDIRECTED PRN Sodium Chloride 0.9% [Saline Flush] 2.5 ml FLUSH ASDIRECTED PRN 05/18/18 05:40 Patient Status [ADT] Stat - Assessment/Plan Last 24 Hours: My Active Orders 05/18/18 04:29 Cardiac Monitoring [RC] . DIRECTED EKG Documentation Completion [RC] STAT Oxygen Therapy, ED [RC] ASDIRECTED Pulse Oximetry [RC] ASDIRECTED UA W/MICROSCOPIC [URIN] Stat Saline Lock Insert [OM.PC] Stat 05/18/18 04:30 RT Aerosol Therapy [RC] ASDIRECTED Chest 1V Frontal [CR] Stat Sodium Chloride 0.9% [Saline Flush] 10 ml FLUSH ASDIRECTED PRN Sodium Chloride 0.9% [Saline Flush] 2.5 ml FLUSH ASDIRECTED PRN 05/18/18 05:40 Patient Status [ADT] Stat
[2018-05-18 04:59] LABS: CHLORIDE,CL 104 mmol/L (98-107); SODIUM,NA 141 mmol/L (136-148)
[2018-05-18] MEDS ORDERED: Furosemide 40 MG/4 ML VIAL IVPUSH ONE (05:32)
[2018-05-18] MEDS ORDERED: Levalbuterol HCl 1.25 MG/3 ML Neb NEB PRN (06:12)
--- NOTE | 2018-05-18 08:00 | PCM.HP ---
H&P History of Present Illness - General Date of Service: 05/18/18 Admit Problem/Dx: Admission Diagnosis/Problem Admission Diagnosis/Problem CHF, Congestive heart failure Source of Information: Patient, Old Records History Limitations: Reports: No Limitations - History of Present Illness Initial Comments - Free Text/Narative: This 82 year old male with pmh of HTN, CHF, CABG 10 years ago, DM type 2, COPD, aortic stenosis, CKD, and AAA presented to the ED early this morning with complaints of shortness of breath and wheezing. He also had some vague complaints of chest pressure and pain. He reports he noticed the last few weeks his legs were becoming more swollen and he noticed his weight was elevating as well. Just last night he noticed the shortness of breath and wheezing to worsen. He denies palpitations. No cough and no phlegm production. He just saw his senior staff accountant Dr Lopez last week for follow up. He did show him his legs, but he mentioned to him to just watch them. He also had an ECHO, which he said Dr Lopez said his aortic stenosis worsened slightly, but there would be nothing to do about it yet. Elie denies oxygen use at home. He denies abdominal pain, urinary troubles or leg pain. No focal neurological deficits. he rpeorts he is good with his diet and doesn't add any salt and has eating many salty foods recently. He reports not taking baby ASA daily due to nose bleeds, "I take it every once in awhile," Reports Dr Lopez is aware and is ok with this. In the ED slight leukocytosis noted 13,050, hgb 12.6, BUN 34, C 1.4 (which are at baseline), BNP 2464, UA negative. CXR revealed stable cardiomegaly with possible congestive changes. EKG revealed SR with LVH some non-specific t wave abnormalities, similar to previous EKGs. He was admitted observation with CHF exacerbation. PCP, Dr Moran Cardiology, Dr Lopez chest Pain Score (Numeric/FACES): 2 - Related Data Allergies/Adverse Reactions: Allergies Allergy/AdvReac Type Severity Reaction Status Date / Time Sulfa (Sulfonamide Allergy Severe Nausea and Unverified 05/18/18 06:36 Antibiotics) Vomiting Ydudreh-Gia-Eqk Reductase Allergy Mild Renal Unverified 05/18/18 06:36 Inhibitor Failure Home Medications: Home Meds Arginine HCl [l-Arginine] 1,000 mg PO BID 01/14/17 [History] Ascorbic Acid [Vitamin C] 1,000 mg PO DAILY 01/14/17 [History] Aspirin 81 mg PO ASDIRECTED 01/14/17 [History] Folic Acid 800 mcg PO DAILY 01/14/17 [History] Glucosamine [Glucosamine Sulfate] 500 mg PO BID 01/14/17 [History] Isosorbide Mononitrate [Imdur] 60 mg PO BID 01/14/17 [History] Metoprolol Tartrate 75 mg PO BID 01/14/17 [History] Multivitamin [Multi-Vitamin Daily] 0 mg PO DAILY 01/14/17 [History] Nitroglycerin [IJP: Nitroglycerin] 0.4 mg SL ASDIRECTED PRN 01/14/17 [History] Ramipril 2.5 mg PO BID 01/14/17 [History] Vitamin E 200 units PO DAILY 04/11/18 [History] amLODIPine [Norvasc] 2.5 mg PO DAILY 04/11/18 [History] metFORMIN [Glucophage] 500 mg PO BIDMEALS 04/11/18 [History] Cholecalciferol (Vitamin D3) [Vitamin D3] 2,000 units PO DAILY 05/18/18 [History ] Ubidecarenone [Co Q-10] 100 mg PO DAILY 05/18/18 [History] Past Medical History HEENT History: Reports: Impaired Vision Other HEENT History: wears glasses Cardiovascular History: Reports: Aneurysm, Bypass, CAD, Heart Failure, High Cholesterol, Hypertension, Prior Cardiac Arrest Other Cardiovascular History: 3 heart attacks, heart chamber dysfunction, aortic heart valve narrowing, leaky mitral valve, abdominal aortic aneurysm Respiratory History: Reports: COPD. Denies: Asthma Gastrointestinal History: Reports: Hiatal Hernia Genitourinary History: Reports: Chronic Renal Insuffiency Musculoskeletal History: Reports: Back Pain, Chronic Psychiatric History: Reports: None Endocrine/Metabolic History: Reports: Diabetes, Type II - Infectious Disease History Infectious Disease History: Reports: Chicken Pox - Past Surgical History HEENT Surgical History: Reports: Cataract Surgery Cardiovascular Surgical History: Reports: Coronary Artery Bypass, Other (See Below) Respiratory Surgical History: Reports: None GI Surgical History: Reports: Hernia, Abdominal Male Surgical History: Reports: None Musculoskeletal Surgical History: Reports: None Oncologic Surgical History: Reports: None Social & Family History - Family History Family Medical History: Noncontributory Cardiac: Reports: CAD Respiratory: Reports: COPD GI: Reports: None : Reports: None Musculoskeletal: Reports: Arthritis, Back pain, Chronic Endocrine/Metabolic: Reports: Diabetes, type II - Tobacco Use Smoking Status *Q: Former Smoker Years of Tobacco use: 50 Used Tobacco, but Quit: Yes Month/Year Tobacco Last Used: 04/2008 Second Hand Smoke Exposure: No - Caffeine Use Caffeine Use: Reports: Coffee, Tea - Alcohol Use Alcohol Use History: No - Recreational Drug Use Recreational Drug Use: No - Living Situation & Occupation Occupation: Retired H&P Review of Systems - Review of Systems: Review Of Systems: See Below General: Reports: No Symptoms. Denies: Fever, Chills, Malaise, Weakness HEENT: Reports: No Symptoms. Denies: Headaches, Sinus Congestion, Sore Throat Pulmonary: Reports: Shortness of Breath (but now improved since arriving to the ED), Wheezing. Denies: Cough, Sputum Cardiovascular: Reports: Dyspnea on Exertion, Orthopnea, Edema. Denies: Chest Pain, Palpitations, Lightheadedness, Syncope Gastrointestinal: Reports: No Symptoms. Denies: Abdominal Pain, Black Stool, Bloody Stool, Nausea, Vomiting Genitourinary: Reports: No Symptoms. Denies: Dysuria, Frequency, Burning Musculoskeletal: Reports: No Symptoms Skin: Reports: No Symptoms Psychiatric: Reports: No Symptoms Neurological: Reports: No Symptoms Hematologic/Lymphatic: Reports: No Symptoms Immunologic: Reports: No Symptoms Exam - Exam Exam: See Below - Vital Signs Vital Signs: Last Vital Signs Temp 97.9 F 05/18/18 06:15 Pulse 100 05/18/18 06:15 Resp 18 05/18/18 06:15 BP 100/73 05/18/18 06:15 Pulse Ox 94 L 05/18/18 06:15 Weight: 65.726 kg - Exam General: Alert, Oriented, Cooperative HEENT: Conjunctiva Clear, Posterior Pharynx Clear, Pupils Equal Neck: Supple, Trachea Midline. No: JVD Lungs: Crackles (fine crackles to RL base) Cardiovascular: Regular Rate, Regular Rhythm, Normal S1, Normal S2 GI/Abdominal Exam: Normal Bowel Sounds, Soft, Non-Tender Extremities: Normal Inspection, Normal Range of Motion, Non-Tender, Pedal Edema (+2 pitting edema to bilateral lower legs) Skin: Warm, Dry, Intact Neurological: Cranial Nerves Intact Neuro Extensive - Mental Status: Alert, Oriented x3, Normal Mood/Affect Neuro Extensive - Motor, Sensory, Reflexes: CN II-XII Intact Psychiatric: Alert, Normal Affect, Normal Mood - Patient Data Lab Results Last 24 hrs: Laboratory Results - last 24 hr 05/18/18 05/18/18 05/18/18 Range/Units 04:30 04:30 04:30 WBC 13.05 H (4.0-11.0) K/uL RBC 3.60 L (4.50-5.90) M/uL Hgb 12.6 L (13.0-17.0) g/dL Hct 37.5 L (38.0-50.0) % MCV 104.2 H (80.0-98.0) fL MCH 35.0 H (27.0-32.0) pg MCHC 33.6 (31.0-37.0) g/dL RDW Std Deviation 58.9 (28.0-62.0) fl RDW Coeff of Mark 16 H (11.0-15.0) % Plt Count 190 (150-400) K/uL MPV 10.20 (7.40-12.00) fL Neut % (Auto) 80.1 H (48.0-80.0) % Lymph % (Auto) 13.0 L (16.0-40.0) % [place] % (Auto) 5.1 (0.0-15.0) % Eos % (Auto) 1.4 (0.0-7.0) % Baso % (Auto) 0.4 (0.0-1.5) % Neut # (Auto) 10.5 H (1.4-5.7) K/uL Lymph # (Auto) 1.7 (0.6-2.4) K/uL [place] # (Auto) 0.7 (0.0-0.8) K/uL Eos # (Auto) 0.2 (0.0-0.7) K/uL Baso # (Auto) 0.1 (0.0-0.1) K/uL Nucleated RBC % 0.0 /100WBC Nucleated RBCs # 0 K/uL INR 1.02 Sodium 141 (136-148) mmol/L Potassium 4.0 (3.5-5.1) mmol/L Chloride 104 (98-107) mmol/L Carbon Dioxide 21.7 (21.0-32.0) mmol/L BUN 34 H (7.0-18.0) mg/dL Creatinine 1.4 H (0.8-1.3) mg/dL Est Cr Clr Drug Dosing 35.24 mL/min Estimated GFR (MDRD) 48.8 ml/min Glucose 198 H (74-106) mg/dL Calcium 9.2 (8.5-10.1) mg/dL Magnesium 1.9 (1.8-2.4) mg/dL Total Bilirubin 0.6 (0.2-1.0) mg/dL AST 26 (15-37) IU/L ALT 36 (14-63) IU/L Alkaline Phosphatase 97 (46-116) U/L Troponin I < 0.050 (0.000-0.056) ng/mL B-Natriuretic Peptide (<100) PG/ML Total Protein 7.7 (6.4-8.2) g/dL Albumin 4.0 (3.4-5.0) g/dL Globulin 3.7 H (2.0-3.5) g/dL Albumin/Globulin Ratio 1.1 L (1.3-2.8) Urine Color Urine Appearance Urine pH (5.0-8.0) Ur Specific [place] (1.001-1.035) Urine Protein (NEGATIVE) mg/dL Urine Glucose (UA) (NEGATIVE) mg/dL Urine Ketones (NEGATIVE) mg/dL Urine Occult Blood (NEGATIVE) Urine Nitrite (NEGATIVE) Urine Bilirubin (NEGATIVE) Urine Urobilinogen (<2.0) EU/dL Ur Leukocyte Esterase (NEGATIVE) Urine RBC (0-2/HPF) Urine WBC (0-5/HPF) Ur Epithelial Cells (NONE-FEW) Amorphous Sediment (NEGATIVE) Urine Bacteria (NEGATIVE) Urine Mucus (NONE-MOD) 05/18/18 05/18/18 Range/Units 04:30 06:30 WBC (4.0-11.0) K/uL RBC (4.50-5.90) M/uL Hgb (13.0-17.0) g/dL Hct (38.0-50.0) % MCV (80.0-98.0) fL MCH (27.0-32.0) pg MCHC (31.0-37.0) g/dL RDW Std Deviation (28.0-62.0) fl RDW Coeff of Mark (11.0-15.0) % Plt Count (150-400) K/uL MPV (7.40-12.00) fL Neut % (Auto) (48.0-80.0) % Lymph % (Auto) (16.0-40.0) % [place] % (Auto) (0.0-15.0) % Eos % (Auto) (0.0-7.0) % Baso % (Auto) (0.0-1.5) % Neut # (Auto) (1.4-5.7) K/uL Lymph # (Auto) (0.6-2.4) K/uL [place] # (Auto) (0.0-0.8) K/uL Eos # (Auto) (0.0-0.7) K/uL Baso # (Auto) (0.0-0.1) K/uL Nucleated RBC % /100WBC Nucleated RBCs # K/uL INR Sodium (136-148) mmol/L Potassium (3.5-5.1) mmol/L Chloride (98-107) mmol/L Carbon Dioxide (21.0-32.0) mmol/L BUN (7.0-18.0) mg/dL Creatinine (0.8-1.3) mg/dL Est Cr Clr Drug Dosing mL/min Estimated GFR (MDRD) ml/min Glucose (74-106) mg/dL Calcium (8.5-10.1) mg/dL Magnesium (1.8-2.4) mg/dL Total Bilirubin (0.2-1.0) mg/dL AST (15-37) IU/L ALT (14-63) IU/L Alkaline Phosphatase (46-116) U/L Troponin I (0.000-0.056) ng/mL B-Natriuretic Peptide 2464 H (<100) PG/ML Total Protein (6.4-8.2) g/dL Albumin (3.4-5.0) g/dL Globulin (2.0-3.5) g/dL Albumin/Globulin Ratio (1.3-2.8) Urine Color YELLOW Urine Appearance CLEAR Urine pH 5.5 (5.0-8.0) Ur Specific [place] 1.020 (1.001-1.035) Urine Protein TRACE (NEGATIVE) mg/dL Urine Glucose (UA) NEGATIVE (NEGATIVE) mg/dL Urine Ketones NEGATIVE (NEGATIVE) mg/dL Urine Occult Blood NEGATIVE (NEGATIVE) Urine Nitrite NEGATIVE (NEGATIVE) Urine Bilirubin NEGATIVE (NEGATIVE) Urine Urobilinogen 0.2 (<2.0) EU/dL Ur Leukocyte Esterase SMALL (NEGATIVE) Urine RBC 0-2 (0-2/HPF) Urine WBC 5-8 (0-5/HPF) Ur Epithelial Cells RARE (NONE-FEW) Amorphous Sediment NOT SEEN (NEGATIVE) Urine Bacteria FEW (NEGATIVE) Urine Mucus NOT SEEN (NONE-MOD) Result Diagrams: 05/18/18 04:30 05/18/18 04:30 *Q Meaningful Use (ADM) - VTE Risk Assess *Q Each Risk Factor Represents 1 Point: Swollen Legs, Current, Congestive heart failure (CHF), Abnormal Pulmonary Function (COPD) Total Score 1 Point Risk Factors: 3 Each Risk Factor Represents 2 Points: None Total Score 2 Point Risk Factors: 0 Each Risk Factor Represents 3 Points: Age 75 Years or Greater Total Score 3 Point Risk Factors: 3 Each Risk Factor Represents 5 Points: None Total Score 5 Point Risk Factors: 0 Venous Thromboembolism Risk Factor Score *Q: 6 - Problem List (1) CHF exacerbation SNOMED Code(s): 00371878 ICD Code: I50.9 - HEART FAILURE, UNSPECIFIED Status: Acute Current Visit : Yes Qualifiers: Heart failure type: diastolic Qualified Code(s): I50.33 - Acute on chronic diastolic (congestive) heart failure (2) COPD (chronic obstructive pulmonary disease) SNOMED Code(s): 92129653 ICD Code: J44.9 - CHRONIC OBSTRUCTIVE PULMONARY DISEASE, UNSPECIFIED Status : Acute Current Visit: Yes (3) AAA (abdominal aortic aneurysm) SNOMED Code(s): 285098208 ICD Code: I71.4 - ABDOMINAL AORTIC ANEURYSM, WITHOUT RUPTURE Status: Acute Current Visit: Yes (4) Aortic stenosis SNOMED Code(s): 47033896 ICD Code: I35.0 - NONRHEUMATIC AORTIC (VALVE) STENOSIS Status: Acute Current Visit: Yes (5) HTN (hypertension) SNOMED Code(s): 66460697 ICD Code: I10 - ESSENTIAL (PRIMARY) HYPERTENSION Status: Acute Current Visit: Yes (6) CKD (chronic kidney disease) SNOMED Code(s): 475110872 ICD Code: N18.9 - CHRONIC KIDNEY DISEASE, UNSPECIFIED Status: Acute Current Visit: Yes (7) PVD (peripheral vascular disease) SNOMED Code(s): 385464525 ICD Code: I73.9 - PERIPHERAL VASCULAR DISEASE, UNSPECIFIED Status: Acute Current Visit: Yes (8) Hx of CABG SNOMED Code(s): 839316440, 344039740 ICD Code: Z95.1 - PRESENCE OF AORTOCORONARY BYPASS GRAFT Status: Acute Current Visit: No Problem List Initiated/Reviewed/Updated: Yes Orders Last 24hrs: Active Orders 24 hr Category Date Time Status Patient Status [ADT] Stat ADT 05/18/18 05:40 Active Blood Glucose Check, Bedside [RC] TIDAC Care 05/18/18 08:00 Ordered Cardiac Monitoring [RC] Q8H Care 05/18/18 06:03 Active Communication Order [RC] ROUTINE Care 05/18/18 07:58 Ordered Height and Weight [RC] DAILY Care 05/18/18 07:59 Ordered Intake and Output Strict [RC] ASDIRECTED Care 05/18/18 07:59 Ordered Notify Provider Consults [RC] ASDIRECTED Care 05/18/18 06:14 Active RT Aerosol Therapy [RC] ASDIRECTED Care 05/18/18 04:30 Active RT Aerosol Therapy [RC] ASDIRECTED Care 05/18/18 06:12 Active Consult to Physician [CONS] Stat Cons 05/18/18 06:13 Active 2 Gram Sodium Diet [DIET] Diet 05/18/18 Breakfast Active Chest 1V Frontal [CR] Stat Exams 05/18/18 04:30 Taken TROPONIN I [CHEM] Routine Lab 05/18/18 10:30 Ordered TROPONIN I [CHEM] Routine Lab 05/18/18 16:30 Ordered UA W/MICROSCOPIC [URIN] Stat Lab 05/18/18 06:30 Ordered Furosemide [Lasix] Med 05/18/18 17:00 Active 40 mg IVPUSH Q12H Insulin Aspart [NovoLOG] Med 05/18/18 11:30 Ordered See Protocol SUBCUT TIDAC Levalbuterol HCl [Xopenex] Med 05/18/18 06:12 Active 1.25 mg NEB Q4HRRT PRN Sodium Chloride 0.9% [Saline Flush] Med 05/18/18 04:30 Active 10 ml FLUSH ASDIRECTED PRN Sodium Chloride 0.9% [Saline Flush] Med 05/18/18 04:30 Active 2.5 ml FLUSH ASDIRECTED PRN Saline Lock Insert [OM.PC] Stat Oth 05/18/18 04:29 Ordered Medication Orders Furosemide (Lasix) 40 mg IVPUSH Q12H TAMEKA Insulin Aspart (Novolog) 0 unit SUBCUT TIDAC TAMEKA; Protocol Levalbuterol HCl (Xopenex) 1.25 mg NEB Q4HRRT PRN PRN Reason: Wheezing Sodium Chloride (Saline Flush) 10 ml FLUSH ASDIRECTED PRN PRN Reason: Keep Vein Open Sodium Chloride (Saline Flush) 2.5 ml FLUSH ASDIRECTED PRN PRN Reason: Keep Vein Open Assessment/Plan Comment:: This 82 year old male admitted with CHF exacerbation with dyspnea, weight gain, and wheezing 1. CHF exacerbation: Will obtain ECHO just performed in [place] last week. Treat with Lasix 40 mg IV BID. Daily weight strict I/O and Heart healthy low sodium diet with 1.5 L FR. Will speak with Dr Lopez today and notify him or [facility] admission. Wean oxygen as possible. Place compression stockings to assist with edema. 2. HTN: Will hold antihypertensives currently, BPs 90-100s/ 60s with diuresis. Will restart as possible and tolerated with diuresis. 3. COPD: Stable, no wheezing this morning. Will monitor. 4. CKD: Currently stable. Will monitor with diuresis. VTE prophylaxis: Heparin Q12h Dispo: 1-2 days pending improvement.
[2018-05-18] MEDS ORDERED: Multivitamin Tab PO SCH (09:30)
[2018-05-18] MEDS ORDERED: Cholecalciferol (Vitamin D3) 1,000 Unit Tab PO SCH (09:30)
[2018-05-18] MEDS ORDERED: ARGININE HCL 1000 MG PO SCH (09:30)
[2018-05-18] MEDS ORDERED: Folic Acid 1 MG Tab PO SCH (09:30)
[2018-05-18] MEDS ORDERED: Non-Formulary Medication 1 Each (Ubidecarenone 100 MG) PO SCH (09:30)
[2018-05-18] MEDS ORDERED: Vitamin E (dl-alpha-tocopherol acetate) 400 Unit Cap PO SCH (09:30)
[2018-05-18] MEDS ORDERED: Metoprolol Tartrate 50 MG Tab PO SCH (09:30)
[2018-05-18] MEDS ORDERED: Insulin Aspart 100 Units/ML 3 ML Pen SUBCUT SCH (11:30)
--- NOTE | 2018-05-18 11:47 | CR ---
EXAM DATE: 05/18/18 PATIENT'S AGE: 82 Patient: ALEXSANDRA AMADOR Facility: [place], [place] Site . Site : [id number] Study: XRay Chest [id number]/27/2018 4:44:11 AM Ordering Physician: Christa Borjas Final Report: INDICATION: Shortness of breath TECHNIQUE: Chest 1 view. COMPARISON: 04/11/2018 FINDINGS: Cardiovascular and mediastinum: Stable cardiomegaly. Possible congestive changes. Mediastinum is within normal limits. Sternotomy wires noted. Lungs and pleural space: Lungs are clear. No sign of infiltrate or mass. No sign of pleural effusion. No pneumothorax. Bones and soft tissues: No significant findings. IMPRESSION: Stable cardiomegaly. Possible congestive changes. Dictated by Kevon Hardin MD @ 05/18/2018 4:52:59 AM Dictated by: Kevon Hardin MD @ 05/18/2018 04:53:04 (Electronic Signature) Report Signed by Proxy. BELLEVUE HOSPITALVanessa
[2018-05-18] MEDS ORDERED: cefTRIAXone 1 GM in Premix Bag 1 BAG IV SCH (12:15)
[2018-05-18] MEDS ORDERED: Metoprolol Tartrate 25 MG Tab PO SCH (13:41)
--- NOTE | 2018-05-18 13:51 | PCM.SN ---
- Free Text/Narrative Note: Patient with elevation in the troponin second set , Cardiology consult was called by patient [employer] SALES CONSULTANT, patient with no current CP , metoprolol to be resumed
[2018-05-18 13:59] VITALS: BP 112/77
[2018-05-18] MEDS ORDERED: Metoprolol Tartrate 50 MG Tab PO ONE (14:08)
[2018-05-18] MEDS ORDERED: Furosemide 40 MG/4 ML VIAL IVPUSH SCH ×2 (14:15→17:00)
[2018-05-18] MEDS ORDERED: Heparin Sod,Pork In 0.45% Nacl 25,000 UNIT/500 ML IV.SOLN IV SCH (15:00)
--- NOTE | 2018-05-18 15:20 | PCM.DCSUM1 ---
Discharge Summary - Hospital Course Brief History: This 82 year old male with pmh of HTN, CHF, CABG 10 years ago, DM type 2, COPD, aortic stenosis, CKD, and AAA presented to the ED early this morning with complaints of shortness of breath and wheezing. He also had some vague complaints of chest pressure and pain. He reports he noticed the last few weeks his legs were becoming more swollen and he noticed his weight was elevating as well. Just last night he noticed the shortness of breath and wheezing to worsen. He denies palpitations. No cough and no phlegm production. He just saw his costume shop coordinator Dr Lopez last week for follow up. He did show him his legs, but he mentioned to him to just watch them. He also had an ECHO, which he said Dr Lopez said his aortic stenosis worsened slightly, but there would be nothing to do about it yet. Elie denies oxygen use at home. He denies abdominal pain, urinary troubles or leg pain. No focal neurological deficits. he rpeorts he is good with his diet and doesn't add any salt and has eating many salty foods recently. He reports not taking baby ASA daily due to nose bleeds, "I take it every once in awhile," Reports Dr Lopez is aware and is ok with this. In the ED slight leukocytosis noted 13,050, hgb 12.6, BUN 34, C 1.4 (which are at baseline), BNP 2464, UA negative. CXR revealed stable cardiomegaly with possible congestive changes. EKG revealed SR with LVH some non -specific t wave abnormalities, similar to previous EKGs. He was admitted observation with CHF exacerbation. PCP, Dr Moran. Cardiology, Dr Lopez - Discharge Data Discharge Date: 05/18/18 Discharge Disposition: DC/Tfer to Acute Hospital 02 Condition: Good - Discharge Diagnosis/Problem(s) (1) CHF exacerbation SNOMED Code(s): 27837951 ICD Code: I50.9 - HEART FAILURE, UNSPECIFIED Status: Acute Current Visit : Yes Qualifiers: Heart failure type: diastolic Qualified Code(s): I50.33 - Acute on chronic diastolic (congestive) heart failure (2) COPD (chronic obstructive pulmonary disease) SNOMED Code(s): 59037896 ICD Code: J44.9 - CHRONIC OBSTRUCTIVE PULMONARY DISEASE, UNSPECIFIED Status : Acute Current Visit: Yes (3) AAA (abdominal aortic aneurysm) SNOMED Code(s): 038059907 ICD Code: I71.4 - ABDOMINAL AORTIC ANEURYSM, WITHOUT RUPTURE Status: Acute Current Visit: Yes (4) Aortic stenosis SNOMED Code(s): 60070024 ICD Code: I35.0 - NONRHEUMATIC AORTIC (VALVE) STENOSIS Status: Acute Current Visit: Yes (5) HTN (hypertension) SNOMED Code(s): 40581510 ICD Code: I10 - ESSENTIAL (PRIMARY) HYPERTENSION Status: Acute Current Visit: Yes (6) CKD (chronic kidney disease) SNOMED Code(s): 661010784 ICD Code: N18.9 - CHRONIC KIDNEY DISEASE, UNSPECIFIED Status: Acute Current Visit: Yes (7) PVD (peripheral vascular disease) SNOMED Code(s): 806064211 ICD Code: I73.9 - PERIPHERAL VASCULAR DISEASE, UNSPECIFIED Status: Acute Current Visit: Yes (8) Hx of CABG SNOMED Code(s): 373305218, 572315445 ICD Code: Z95.1 - PRESENCE OF AORTOCORONARY BYPASS GRAFT Status: Acute Current Visit: No - Patient Summary/Data Consults: Consultations 05/18/18 13:45 Consult to Physician [CONS] Routine - Patient Instructions Diet: Heart Healthy Diet Activity: No Strenuous Activities - Discharge Plan Home Medications: Home Meds Arginine HCl [l-Arginine] 1,000 mg PO BID 01/14/17 [History] Ascorbic Acid [Vitamin C] 1,000 mg PO DAILY 01/14/17 [History] Folic Acid 800 mcg PO DAILY 01/14/17 [History] Glucosamine [Glucosamine Sulfate] 500 mg PO BID 01/14/17 [History] Isosorbide Mononitrate [Imdur] 60 mg PO BID 01/14/17 [History] Metoprolol Tartrate 75 mg PO BID 01/14/17 [History] Multivitamin [Multi-Vitamin Daily] 0 mg PO DAILY 01/14/17 [History] Nitroglycerin [IJP: Nitroglycerin] 0.4 mg SL ASDIRECTED PRN 01/14/17 [History] Ramipril 2.5 mg PO BID 01/14/17 [History] Vitamin E 200 units PO DAILY 04/11/18 [History] amLODIPine [Norvasc] 2.5 mg PO DAILY 04/11/18 [History] metFORMIN [Glucophage] 500 mg PO BIDMEALS 04/11/18 [History] Cholecalciferol (Vitamin D3) [Vitamin D3] 2,000 units PO DAILY 05/18/18 [History ] Ubidecarenone [Co Q-10] 100 mg PO DAILY 05/18/18 [History] Referrals: Marko Moran MD [Physician] - - Discharge Summary/Plan Comment DC Time >30 min.: No Discharge Summary/Plan Comment: Discharge Diagnoses: NSTEMI CHF exacerbation, systolic and diastolic dysfunction, EF 35% HTN CKD, stage 3 COPD DM type 2, non insulin dependent. Aortic stenosis AAA Fernie was admitted for CHF exacerbation treated with IV Lasix 40 mg IV BID, received a total of 80 mg today. Dry weight known to be around 130 lbs, todays weight was 144.9 lbs. Initial troponin in ED was negative, second set drawn at 11:00 today, which returned elevated 0.986. We attempted to contact Dr Lopez , who is not available. We consulted Dr. Donnelly, Cardiology, who spoke with patient and recommended transfer for angiogram. Patient and family agreed. Dr Donnelly contacted Dr Andrade, agricultural economist Cardiology, who agreed with treatment plan and requested hospitalist be contact to admit patient. I spoke with Dr Becker, Hospitalist and [facility] who has kindly accepted patient for transfer. We will transfer via EMS, they are able to handle heparin gtt during transfer. Patient currently is asymptomatic, no chest pain and is hemodynamically stable. He is requiring 2 L NC with sats in mid to high 90%. I updated Elie and his daughter regarding transfer arrangements and they are in agreement and prefer ground EMS as well. Will start Heparin gtt prior to transfer for NSTEMI protocol. No Plavix or ASA given due to patient severe reaction to them, Per Dr Donnelly only Heparin gtt for now after he spoke with Dr Andrade. - General Info Date of Service: 05/18/18 Subjective Update: Sitting up in chair, talking with daughter. continues to deny chest pain. Dyspnea with exertion only. Functional Status: Reports: Pain Controlled, Tolerating Diet, Ambulating, Urinating - Review of Systems HEENT: Reports: No Symptoms. Denies: Headaches, Sore Throat Pulmonary: Reports: No Symptoms. Denies: Shortness of Breath, Cough, Sputum Cardiovascular: Reports: Dyspnea on Exertion. Denies: Chest Pain, Edema Gastrointestinal: Reports: No Symptoms. Denies: Abdominal Pain, Nausea, Vomiting Genitourinary: Reports: No Symptoms. Denies: Dysuria, Frequency, Burning Musculoskeletal: Reports: No Symptoms Skin: Reports: No Symptoms Neurological: Reports: No Symptoms Psychiatric: Reports: No Symptoms - Patient Data Vitals - Most Recent: Last Vital Signs Temp 98.3 F 05/18/18 13:00 Pulse 104 H 05/18/18 14:18 Resp 20 05/18/18 13:00 BP 112/77 05/18/18 14:18 Pulse Ox 95 05/18/18 13:00 Weight - Most Recent: 65.726 kg I&O - Last 24 hours: Intake & Output 05/18/18 05/18/18 05/18/18 06:59 14:59 22:59 Intake Total 550 Output Total 1200 Balance -650 Lab Results - Last 24 hrs: Laboratory Results - last 24 hr 05/18/18 05/18/18 05/18/18 Range/Units 04:30 04:30 04:30 WBC 13.05 H (4.0-11.0) K/uL RBC 3.60 L (4.50-5.90) M/uL Hgb 12.6 L (13.0-17.0) g/dL Hct 37.5 L (38.0-50.0) % MCV 104.2 H (80.0-98.0) fL MCH 35.0 H (27.0-32.0) pg MCHC 33.6 (31.0-37.0) g/dL RDW Std Deviation 58.9 (28.0-62.0) fl RDW Coeff of Mark 16 H (11.0-15.0) % Plt Count 190 (150-400) K/uL MPV 10.20 (7.40-12.00) fL Neut % (Auto) 80.1 H (48.0-80.0) % Lymph % (Auto) 13.0 L (16.0-40.0) % Drew % (Auto) 5.1 (0.0-15.0) % Eos % (Auto) 1.4 (0.0-7.0) % Baso % (Auto) 0.4 (0.0-1.5) % Neut # (Auto) 10.5 H (1.4-5.7) K/uL Lymph # (Auto) 1.7 (0.6-2.4) K/uL Drew # (Auto) 0.7 (0.0-0.8) K/uL Eos # (Auto) 0.2 (0.0-0.7) K/uL Baso # (Auto) 0.1 (0.0-0.1) K/uL Nucleated RBC % 0.0 /100WBC Nucleated RBCs # 0 K/uL INR 1.02 Sodium 141 (136-148) mmol/L Potassium 4.0 (3.5-5.1) mmol/L Chloride 104 (98-107) mmol/L Carbon Dioxide 21.7 (21.0-32.0) mmol/L BUN 34 H (7.0-18.0) mg/dL Creatinine 1.4 H (0.8-1.3) mg/dL Est Cr Clr Drug Dosing 35.24 mL/min Estimated GFR (MDRD) 48.8 ml/min Glucose 198 H (74-106) mg/dL POC Glucose (60-110) mg/dL Hemoglobin A1c (4.5-6.2) % Calcium 9.2 (8.5-10.1) mg/dL Magnesium 1.9 (1.8-2.4) mg/dL Total Bilirubin 0.6 (0.2-1.0) mg/dL AST 26 (15-37) IU/L ALT 36 (14-63) IU/L Alkaline Phosphatase 97 (46-116) U/L Troponin I < 0.050 (0.000-0.056) ng/mL B-Natriuretic Peptide (<100) PG/ML Total Protein 7.7 (6.4-8.2) g/dL Albumin 4.0 (3.4-5.0) g/dL Globulin 3.7 H (2.0-3.5) g/dL Albumin/Globulin Ratio 1.1 L (1.3-2.8) Urine Color Urine Appearance Urine pH (5.0-8.0) Ur Specific [place] (1.001-1.035) Urine Protein (NEGATIVE) mg/dL Urine Glucose (UA) (NEGATIVE) mg/dL Urine Ketones (NEGATIVE) mg/dL Urine Occult Blood (NEGATIVE) Urine Nitrite (NEGATIVE) Urine Bilirubin (NEGATIVE) Urine Urobilinogen (<2.0) EU/dL Ur Leukocyte Esterase (NEGATIVE) Urine RBC (0-2/HPF) Urine WBC (0-5/HPF) Ur Epithelial Cells (NONE-FEW) Amorphous Sediment (NEGATIVE) Urine Bacteria (NEGATIVE) Urine Mucus (NONE-MOD) 05/18/18 05/18/18 05/18/18 Range/Units 04:30 06:30 08:25 WBC (4.0-11.0) K/uL RBC (4.50-5.90) M/uL Hgb (13.0-17.0) g/dL Hct (38.0-50.0) % MCV (80.0-98.0) fL MCH (27.0-32.0) pg MCHC (31.0-37.0) g/dL RDW Std Deviation (28.0-62.0) fl RDW Coeff of Mark (11.0-15.0) % Plt Count (150-400) K/uL MPV (7.40-12.00) fL Neut % (Auto) (48.0-80.0) % Lymph % (Auto) (16.0-40.0) % Drew % (Auto) (0.0-15.0) % Eos % (Auto) (0.0-7.0) % Baso % (Auto) (0.0-1.5) % Neut # (Auto) (1.4-5.7) K/uL Lymph # (Auto) (0.6-2.4) K/uL Drew # (Auto) (0.0-0.8) K/uL Eos # (Auto) (0.0-0.7) K/uL Baso # (Auto) (0.0-0.1) K/uL Nucleated RBC % /100WBC Nucleated RBCs # K/uL INR Sodium (136-148) mmol/L Potassium (3.5-5.1) mmol/L Chloride (98-107) mmol/L Carbon Dioxide (21.0-32.0) mmol/L BUN (7.0-18.0) mg/dL Creatinine (0.8-1.3) mg/dL Est Cr Clr Drug Dosing mL/min Estimated GFR (MDRD) ml/min Glucose (74-106) mg/dL POC Glucose 342 H (60-110) mg/dL Hemoglobin A1c (4.5-6.2) % Calcium (8.5-10.1) mg/dL Magnesium (1.8-2.4) mg/dL Total Bilirubin (0.2-1.0) mg/dL AST (15-37) IU/L ALT (14-63) IU/L Alkaline Phosphatase (46-116) U/L Troponin I (0.000-0.056) ng/mL B-Natriuretic Peptide 2464 H (<100) PG/ML Total Protein (6.4-8.2) g/dL Albumin (3.4-5.0) g/dL Globulin (2.0-3.5) g/dL Albumin/Globulin Ratio (1.3-2.8) Urine Color YELLOW Urine Appearance CLEAR Urine pH 5.5 (5.0-8.0) Ur Specific [place] 1.020 (1.001-1.035) Urine Protein TRACE (NEGATIVE) mg/dL Urine Glucose (UA) NEGATIVE (NEGATIVE) mg/dL Urine Ketones NEGATIVE (NEGATIVE) mg/dL Urine Occult Blood NEGATIVE (NEGATIVE) Urine Nitrite NEGATIVE (NEGATIVE) Urine Bilirubin NEGATIVE (NEGATIVE) Urine Urobilinogen 0.2 (<2.0) EU/dL Ur Leukocyte Esterase SMALL (NEGATIVE) Urine RBC 0-2 (0-2/HPF) Urine WBC 5-8 (0-5/HPF) Ur Epithelial Cells RARE (NONE-FEW) Amorphous Sediment NOT SEEN (NEGATIVE) Urine Bacteria FEW (NEGATIVE) Urine Mucus NOT SEEN (NONE-MOD) 05/18/18 05/18/18 Range/Units 11:13 11:13 WBC (4.0-11.0) K/uL RBC (4.50-5.90) M/uL Hgb (13.0-17.0) g/dL Hct (38.0-50.0) % MCV (80.0-98.0) fL MCH (27.0-32.0) pg MCHC (31.0-37.0) g/dL RDW Std Deviation (28.0-62.0) fl RDW Coeff of Mark (11.0-15.0) % Plt Count (150-400) K/uL MPV (7.40-12.00) fL Neut % (Auto) (48.0-80.0) % Lymph % (Auto) (16.0-40.0) % Drew % (Auto) (0.0-15.0) % Eos % (Auto) (0.0-7.0) % Baso % (Auto) (0.0-1.5) % Neut # (Auto) (1.4-5.7) K/uL Lymph # (Auto) (0.6-2.4) K/uL Drew # (Auto) (0.0-0.8) K/uL Eos # (Auto) (0.0-0.7) K/uL Baso # (Auto) (0.0-0.1) K/uL Nucleated RBC % /100WBC Nucleated RBCs # K/uL INR Sodium (136-148) mmol/L Potassium (3.5-5.1) mmol/L Chloride (98-107) mmol/L Carbon Dioxide (21.0-32.0) mmol/L BUN (7.0-18.0) mg/dL Creatinine (0.8-1.3) mg/dL Est Cr Clr Drug Dosing mL/min Estimated GFR (MDRD) ml/min Glucose (74-106) mg/dL POC Glucose (60-110) mg/dL Hemoglobin A1c 6.1 (4.5-6.2) % Calcium (8.5-10.1) mg/dL Magnesium (1.8-2.4) mg/dL Total Bilirubin (0.2-1.0) mg/dL AST (15-37) IU/L ALT (14-63) IU/L Alkaline Phosphatase (46-116) U/L Troponin I 0.986 H* (0.000-0.056) ng/mL B-Natriuretic Peptide (<100) PG/ML Total Protein (6.4-8.2) g/dL Albumin (3.4-5.0) g/dL Globulin (2.0-3.5) g/dL Albumin/Globulin Ratio (1.3-2.8) Urine Color Urine Appearance Urine pH (5.0-8.0) Ur Specific [place] (1.001-1.035) Urine Protein (NEGATIVE) mg/dL Urine Glucose (UA) (NEGATIVE) mg/dL Urine Ketones (NEGATIVE) mg/dL Urine Occult Blood (NEGATIVE) Urine Nitrite (NEGATIVE) Urine Bilirubin (NEGATIVE) Urine Urobilinogen (<2.0) EU/dL Ur Leukocyte Esterase (NEGATIVE) Urine RBC (0-2/HPF) Urine WBC (0-5/HPF) Ur Epithelial Cells (NONE-FEW) Amorphous Sediment (NEGATIVE) Urine Bacteria (NEGATIVE) Urine Mucus (NONE-MOD) Med Orders - Current: Current Medications Ascorbic Acid (Vitamin C) 1,000 mg PO DAILY [facility] Cholecalciferol (Vitamin D3) 2,000 units PO DAILY [facility] Last Admin: 05/18/18 10:21 Dose: 2,000 units Folic Acid (Folic Acid) 1 mg PO DAILY [facility] Last Admin: 05/18/18 10:21 Dose: 1 mg Furosemide (Lasix) 40 mg IVPUSH BIDDIURETIC [facility] Last Admin: 05/18/18 14:25 Dose: 40 mg Ceftriaxone Sodium/Dextrose 1 (gm/ Premix) 50 mls @ 100 mls/hr IV Q24H [facility] Last Admin: 05/18/18 12:44 Dose: 100 mls/hr Heparin Sodium/Sodium Chloride (Heparin-1/2ns 25,000 Units/500) 25,000 unit in 500 mls @ 15.774 mls/hr IV TITRATE TAMEKA; Protocol Insulin Aspart (Novolog) 0 unit SUBCUT TIDAC [facility]; Protocol Last Admin: 05/18/18 12:38 Dose: 4 units Isosorbide Mononitrate (Imdur) 60 mg PO BID [facility] Levalbuterol HCl (Xopenex) 1.25 mg NEB Q4HRRT PRN PRN Reason: Wheezing Metoprolol Tartrate (Lopressor) 75 mg PO BID [facility] Last Admin: 05/18/18 12:05 Dose: Not Given Multivitamins/Minerals/Vitamin C (Tab-A-Adarsh) 1 tab PO DAILY [facility] Last Admin: 05/18/18 10:21 Dose: 1 tab Sodium Chloride (Saline Flush) 10 ml FLUSH ASDIRECTED PRN PRN Reason: Keep Vein Open Sodium Chloride (Saline Flush) 2.5 ml FLUSH ASDIRECTED PRN PRN Reason: Keep Vein Open Vitamin E (Vitamin E) 400 units PO DAILY [facility] Last Admin: 05/18/18 10:21 Dose: 400 units Discontinued Medications Albuterol/Ipratropium (Duoneb 3.0-0.5 Mg/3 Ml) 3 ml NEB ONETIME ONE Stop: 05/18/18 04:29 Last Admin: 05/18/18 04:39 Dose: 3 ml Aspirin (Aspirin) 324 mg PO ONETIME ONE Stop: 05/18/18 04:29 Last Admin: 05/18/18 04:46 Dose: Not Given Furosemide (Lasix) 20 mg IVPUSH NOW ONE Stop: 05/18/18 05:33 Last Admin: 05/18/18 05:41 Dose: 20 mg Furosemide (Lasix) 40 mg IVPUSH Q12H [facility] Methylprednisolone Sodium Succinate (Solu-Medrol) 125 mg IVPUSH ONETIME ONE Stop: 05/18/18 04:29 Last Admin: 05/18/18 04:39 Dose: 125 mg Metoprolol Tartrate (Lopressor) 25 mg PO Q12HR [facility] Last Admin: 05/18/18 13:56 Dose: 25 mg Metoprolol Tartrate (Lopressor) 50 mg PO ONETIME ONE Stop: 05/18/18 14:09 Last Admin: 05/18/18 14:18 Dose: 50 mg Nitroglycerin (Nitro-Bid 2%) 0.5 gm TOP ONETIME ONE Stop: 05/18/18 04:29 Last Admin: 05/18/18 04:39 Dose: 0.5 gm - Exam General: Reports: Alert, Oriented, Cooperative, No Acute Distress Lungs: Reports: Normal Respiratory Effort (dyspnea noted with exertion), Crackles (R base) Cardiovascular: Reports: Regular Rate, Regular Rhythm GI/Abdominal Exam: Normal Bowel Sounds, Soft, Non-Tender Extremities: Normal Range of Motion, Non-Tender, Pedal Edema (+2 pitting edema bilaterally) Wound/Incisions: Reports: Healing Well Neurological: Reports: No New Focal Deficit Psy/Mental Status: Reports: Alert, Normal Affect, Normal Mood
[2018-05-18] MEDS ORDERED: Heparin Sodium 5,000 Units/ML Vial IVPUSH PRN (15:35)
[2018-05-18] MEDS ORDERED: Heparin Sodium 5,000 Units/ML Vial IVPUSH ONE (15:45)
[2018-05-18] MEDS ORDERED: Isosorbide Mononitrate 60 MG Tab.ER PO SCH (21:00)
[2018-05-18] MEDS ORDERED: GLUCOSAMINE 500 MG PO SCH (21:00)
[2018-05-19] MEDS ORDERED: Ascorbic Acid 500 MG Tab PO SCH (09:00)
--- NOTE | 2018-05-19 09:36 | CONS ---
DATE OF CONSULTATION: DATE OF : 1935 PRIMARY CARE PHYSICIAN: None PCP REASON FOR CONSULTATION: Heart failure and troponin elevation. HISTORY OF PRESENT ILLNESS: This is an 82-year-old male who had a history of triple-vessel disease; CAD, status post CABG; history of abdominal aortic aneurysm; peripheral vascular disease; COPD; hypertension; hyperlipidemia; carotid disease; diabetes; and history of former smoking. He presented to the hospital with sudden onset of shortness of breath with leg swelling and weight gain. He was admitted in the hospital in March at that time due to the symptom of palpitation and fluttering, questionable chest pain; however, the patient left AMA, and then he was followed with Dr. Lopez in the clinic. He had an echo done in April at that time that showed ejection fraction of 35%, and the patient mentioned to Dr. Lopez about his leg swelling getting worse. However, at that time, he felt that his breathing seemed to be okay. On the day of admission, he started feeling short of breath, and breathing so labored, he went to the bathroom, and he went back to bed, but he is still feeling short of breath, and when he started moving or doing some activity, it is very difficult for him to do the activities and then decided to come to the emergency room. He called the ambulance. He also found that he gained 9 pounds with leg swelling past week. He feels slight pressure in his chest as well, but however, he does not feel like anginal chest pain that he has been experiencing, and he had been taking Imdur 60 mg as well. He stated that his angina usually is the left arm pain and usually occur with activities, and if he was resting, the pain usually subsided. When he was in the emergency room, he was found to have audible expiratory wheezing, and he is breathing labored. He was given Lasix 20 mg IV and also nebulized treatment as well as Solu-Medrol for possible COPD treatment, and he got admitted to the hospital. The BNP was elevated at 2400, as well as a chest x-ray showed pulmonary edema, pulmonary vascular congestion, and cephalization as well with a pleural effusion bilaterally. As compared to the chest x-ray in March, it looks worse. EKG, there is ST abnormality; however, there are no new changes of ST-segment plus PVCs. Troponin was negative in the first set, and then when I saw him, he was making urine output since he came into the hospital, 1200, and he feels that his breathing got improved. However, he still feels short of breath. No chest pain since he got to the hospital. PAST MEDICAL HISTORY: Including hypertension; hyperlipidemia; CAD, status post CABG; and triple-vessel disease. Had a CABG in 2011 at that time. He had BELCHER to LAD, SVG to OM as well as to right posterolateral branch. Ejection fraction in 2011 at that time is noted to be 39% to 40% and found to have proximal LAD 80%, proximal circumflex totally occluded, and RCA totally occluded. He did not have any testing since until 2016 of last year. Echocardiogram showed ejection fraction of 35% in December 2016. Echocardiogram back in April, 2 weeks ago, of this year showed ejection fraction 35%, moderate aortic valve sclerosis without stenosis, moderate tricuspid valve regurgitation, and severe MR. CURRENT MEDICATIONS: Includin. Amlodipine 2.5 mg once a day. 2. Aspirin 81 mg once a day. 3. Imdur 60 mg once a day. 4. Metformin 500 mg once a day. 5. Lopressor 75 mg twice a day. 6. Ramipril 2.5 mg twice a day. ALLERGIES: He is allergic to statin as well as sulfa antibiotics. FAMILY HISTORY: History of CAD and COPD. SOCIAL HISTORY: Former smoker. No drug use. No alcohol use. REVIEW OF SYSTEMS: Except indicated in the HPI, otherwise has been negative. PHYSICAL EXAMINATION: VITAL SIGNS: Initial blood pressure is 152/132, and the current blood pressure is 111/80. Initial O2 saturation 95% on room air and currently also 95% on 1 to 2 L. The heart rate is tachycardia, heart rate is 106 to 110. Temperature 36.8. HEENT: Mouth is dry. Not pale. No jaundice. NECK: JVD positive. HEART: Tachycardia. Regular rate and rhythm. LUNGS: Crackles bilaterally. Decreased breath sounds bilaterally as well. ABDOMEN: Soft and nontender. Bowel sounds present. No hepatosplenomegaly. No rebound tenderness. LEGS: Edema 1+ in ankle. INVESTIGATIONS: CBC showed WBC 13, hematocrit 37, platelets are 190. Sodium 141, potassium 4, chloride 104, carbon dioxide 21, BUN 34, and creatinine 1.4. A1c 6.1. Troponin, the first set is 0.05 and the second set is 0.9. BNP 2464. Urinalysis, wbc's 5 to 8. EKG shows sinus tachycardia with frequent PVCs, and there are ST abnormalities in II, III, aVF, as well as V4 to V6 and with PVCs. An echocardiogram back in April 2018 showed ejection fraction of 35%, severe biatrial enlargement, moderate aortic sclerosis without stenosis, severe mitral valve regurgitation, moderate tricuspid valve regurgitation, and normal right ventricular systolic function. ASSESSMENT AND PLAN: This is an 82-year-old male who has a history of severe triple-vessel disease, status post bypass x3 vessel in 2011, ischemic cardiomyopathy, ejection fraction of 35% dropped from 40% at the time of bypass, and presented to the hospital with decompensated systolic heart failure with elevation of troponin with mild chest pressure. Currently, he has been diuresing very well. He is making urine output 1200, and his breathing seemed to be better. However, the troponin was rising from less than 0.05 to 0.9 and has been more than 5 years since the bypass. His ejection fraction got declined. Personally, I recommended to treat him as the ACS with aspirin along with heparin. He mentioned that he had a severe reaction to Plavix before. I talked to Dr. Yung, who is the dominatrix on-call in [facility], who recommended not to start any other antiplatelet agent except the aspirin and heparin. I recommended to be transferred to tertiary hospital for possible angiograms. He noted to have severe mitral valve regurgitation that could be the ischemic MR or also the combination of ischemic MR as well as a functional MR from cardiomyopathy and dilatation of LV. I also mentioned to him briefly that he probably need to have the ICD to be put in to protect him from cardiac arrest, and the patient agreed to be transferred, and no further questions. ZOHREH / YOHAN /[id number]
== END 2018-05-18 16:25 ==
LOC: MW.ED 04:22 → MW.MS 05:40
PROVIDERS: ADMIT Internal Medicine; ATTEND Internal Medicine
DX: I13.0 Hypertensive heart and chronic kidney disease with heart failure and stage 1 through stage 4 chronic kidney disease, or unspecified chronic kidney disease (principal); I50.33 Acute on chronic diastolic (congestive) heart failure; N18.3 Chronic kidney disease, stage 3 (moderate); E11.22 Type 2 diabetes mellitus with diabetic chronic kidney disease; J44.9 Chronic obstructive pulmonary disease, unspecified; I71.4 Abdominal aortic aneurysm, without rupture; Z95.1 Presence of aortocoronary bypass graft; I35.0 Nonrheumatic aortic (valve) stenosis; I73.9 Peripheral vascular disease, unspecified; I25.2 Old myocardial infarction; Z87.891 Personal history of nicotine dependence; Z79.84 Long term (current) use of oral hypoglycemic drugs; Z79.82 Long term (current) use of aspirin; Z79.899 Other long term (current) drug therapy; Z88.0 Allergy status to penicillin; Z88.2 Allergy status to sulfonamides
CPT/HCPCS: 71045; 80053; 81001; 82962; 83036; 83735; 83880; 84484; 85025; 85610; 85730; 87086; 93005; 94640; 96365; 96367; 96375; 96376; 99285; A9270; G0378; J0696; J1644; J1815; J1940; J2930; 96374

== ENCOUNTER 2018-12-25 11:38 | Emergency (ER) | payer MEDICARE, OTHER ==
[2018-12-25] MEDS ORDERED: Sodium Chloride 0.9% 2.5 ML Syringe FLUSH PRN (11:46)
[2018-12-25] MEDS ORDERED: Sodium Chloride 0.9% 10 ML Syringe FLUSH PRN (11:46)
[2018-12-25] MEDS ORDERED: Albuterol/Ipratropium 3.0-0.5 MG/3 ML Neb Soln NEB ONE (12:04)
--- NOTE | 2018-12-25 12:22 | EDM.PDOC ---
ED HPI GENERAL MEDICAL PROBLEM - General Chief Complaint: Respiratory Problem Stated Complaint: SHORTNESS OF BREATH Time Seen by Provider: 12/25/18 11:44 Source of Information: Reports: Patient History Limitations: Reports: No Limitations - History of Present Illness INITIAL COMMENTS - FREE TEXT/NARRATIVE: HISTORY AND PHYSICAL: History of present illness: Patient is an 83-year-old male who presents to the ED today with concerns of feeling short of breath. He states that this has been an ongoing problem since he started having heart issues. He states that today he feels a little worse so he wanted to get evaluated. Patient does have a history of recent and NSTEMI who was transferred/admitted to [facility] in [place] for stent placement. At discharge on 12/22/2018 from [facility], cardiac catheter showed multivessel coronary artery disease and occluded saphenous pain graft stenting of the obtuse marginal artery. He does follow a senior management consultant in [place] and has an appointment in December for medication review. Currently, patient is status post 2-1/2 days discharge from [facility]. He states that since discharge he has had an underlying shortness of breath but today believes the shortness of breath is worse. Patient denies chest pain, shortness of breath, left arm or right arm pain, abdominal pain, diaphoresis, or any other cardiovascular symptoms. Patient denies cough, pain with inspiration, or any other respiratory symptoms. Review of systems: As per history of present illness and below otherwise all systems reviewed and negative. Past medical history: As per history of present illness and as reviewed below otherwise noncontributory. Surgical history: As per history of present illness and as reviewed below otherwise noncontributory. Social history: See social history for further information Family history: As per history of present illness and as reviewed below otherwise noncontributory. Physical exam: General: Patient is alert, oriented, in no acute distress. He is sitting comfortably on exam table. HEENT: Negative JVD. Atraumatic, normocephalic, pupils equal and reactive bilaterally, negative for conjunctival pallor or scleral icterus, mucous membranes moist, TMs normal bilaterally, throat clear, neck supple, nontender, trachea midline. No drooling or trismus noted. No meningeal signs. No hot potato voice noted. Lungs: Clear to auscultation, left lung sounds are diminished but negative rhonchi, right lung truong are clear throughout, chest nontender. Patient is breathing comfortably without intercostal retractions or use of accessory muscles. Heart: S1S2, grade 3-4 systolic murmur best heard at the apex Abdomen: Soft, nondistended, nontender. Negative for masses or hepatosplenomegaly. Negative for costovertebral tenderness. Pelvis: Stable nontender. Genitourinary: Deferred. Rectal: Deferred. Skin: Intact, warm, dry. No lesions or rashes noted. Extremities: Atraumatic, negative for cords or calf pain. Neurovascular unremarkable. Neuro: Awake, alert, oriented. Cranial nerves II through XII unremarkable. Cerebellum unremarkable. Motor and sensory unremarkable throughout. Exam nonfocal. Notes: On arrival to the ED and EKG was obtained within 15 minutes. Patient appears alert, oriented and comfortable today upon entrance into the ED. He is breathing comfortably without retractions or accessory muscle use. Will do a full cardiac workup today. His EKG was obtained and compared to past EKG by me and Dr. Goodwin. There are some differences between his post recent EKG (post stent) and has some resemblances to his EKG when he was in the ER for NSTEMI. Will proceed with cardiac workup. A troponin was called with an elevation at 0.057. He does have a history of elevated troponins from previous visits, elevated on last visit three days ago. I believe this number is trending downward from that previous admission. Patient does state he feels anxious and desires medication for this while in the ED. He has a friend to drive him home. Discussed with patient the elevation in his troponin and discussed the causes that can lead to an elevated troponin. Discussed the need to follow/trend troponin levels and cardiac monitoring in order to find a cause and elevation. Offered to admit patient for observation for acute coronary syndrome but patient declines and accepts risks. Discussed the risk of need for further evaluation but patient accepts the risks at this time and declines admission. Patient's BNP is 1207 which is more elevated than it has been from prior visits. Discussed with patient that his shortness of breath could be related to an exacerbation of his heart failure. Patient admits to not taking his Lasix which he did not admit on prior history. Discussed with patient the need to observe inpatient and to take some fluid off in order to improve his shortness of breath. Patient states that he would rather go home and take his Lasix at home. Discussed the risks of this and patient accepts the risks and declines admission at this time. Patient states he will return to the ED if he changes his mind. Diagnostics: CBC, CMP, BNP, INR/PTT, troponin, chest x-ray, EKG Therapeutics: DuoNeb, Saline lock, Aspirin, Ativan, Lasix Prescription: None Impression: 1. Elevated troponin, unknown etiology 2. Exacerbation of CHF 3. Anemia, unknown etiology 4. Elevated kidney markers, unknown etiology 5. Medication non compliance Plan: 1. You are prescribed Furoside (Lasix) 20mg daily. Please take this as directed. This will help with your shortness of breath. Please follow up with your primary care provider to have your medications reevaluated as you expressed confusion about your home medications. 2. Use nebulizer and inhaler as needed for shortness of breath. 3. Follow up with your primary care provider (Dr. Moran) and senior management consultant. Talk with Dr. Moran in regards to anxiety as we discussed. 4. Return to the ED as needed and as discussed. Definitive disposition and diagnosis as appropriate pending reevaluation and review of above. - Related Data Allergies Allergy/AdvReac Type Severity Reaction Status Date / Time Sulfa (Sulfonamide Allergy Severe Nausea and Verified 12/21/18 20:58 Antibiotics) Vomiting Etuwplg-Keg-Klu Reductase Allergy Mild Renal Verified 12/21/18 20:58 Inhibitor Failure Home Meds: Home Meds Arginine HCl [l-Arginine] 1,000 mg PO BID 01/14/17 [History] Folic Acid 1 mg PO DAILY 01/14/17 [History] Glucosamine [Glucosamine Sulfate] 500 mg PO BID 01/14/17 [History] Multivitamin [Multi-Vitamin Daily] 0 mg PO DAILY 01/14/17 [History] Nitroglycerin [IJP: Nitroglycerin] 0.4 mg SL ASDIRECTED PRN 01/14/17 [History] metFORMIN [Glucophage] 500 mg PO BID 04/11/18 [History] Cholecalciferol (Vitamin D3) [Vitamin D3] 2,000 units PO DAILY 05/18/18 [History ] Ubidecarenone [Co Q-10] 100 mg PO DAILY 05/18/18 [History] Digoxin 0.125 mg PO DAILY 12/15/18 [History] Furosemide 20 mg PO DAILY 12/15/18 [History] traMADol [Ultram] 50 mg PO Q12H 12/15/18 [History] Albuterol [Ventolin HFA] 1 puff INH Q6H PRN #1 inhaler 12/22/18 [Rx] Albuterol/Ipratropium [DuoNeb 3.0-0.5 MG/3 ML] 3 ml INH Q4H PRN 30 Days #1 neb 12/22/18 [Rx] Aspirin [Adult Aspirin] 81 mg PO DAILY 30 Days #30 tablet.dr 12/22/18 [Rx] Carvedilol 6.25 mg PO BID 30 Days #60 tablet 12/22/18 [Rx] Iron Polysaccharide Complex [Ferric X-150] 150 mg PO DAILY 30 Days #30 capsule 12/22/18 [Rx] Lisinopril 2.5 mg PO DAILY 30 Days #30 tablet 12/22/18 [Rx] Sertraline [Zoloft] 25 mg PO DAILY 30 Days #30 tablet 12/22/18 [Rx] Ticagrelor [Brilinta] 90 mg PO BID 30 Days #60 tablet 12/22/18 [Rx] glipiZIDE [Glucotrol] 2.5 mg PO DAILY 30 Days #30 tablet 12/22/18 [Rx] Past Medical History HEENT History: Reports: Impaired Vision Other HEENT History: wears glasses Cardiovascular History: Reports: Aneurysm, Bypass, CAD, Heart Failure, High Cholesterol, Hypertension, Prior Cardiac Arrest, Stents Other Cardiovascular History: 3 heart attacks, heart chamber dysfunction, aortic heart valve narrowing, leaky mitral valve, abdominal aortic aneurysm Respiratory History: Reports: None Other Respiratory History: dust related pneumonia Gastrointestinal History: Reports: Hiatal Hernia Genitourinary History: Reports: Chronic Renal Insuffiency Other Genitourinary History: "kidney damage" Musculoskeletal History: Reports: None Neurological History: Reports: None Psychiatric History: Reports: None Endocrine/Metabolic History: Reports: Diabetes, Type II Other Endocrine/Metabolic History: "borderline diabetic" Hematologic History: Reports: None Immunologic History: Reports: None Oncologic (Cancer) History: Reports: None Dermatologic History: Reports: None - Infectious Disease History Infectious Disease History: Reports: Chicken Pox, Measles, Mumps - Past Surgical History Head Surgeries/Procedures: Reports: None HEENT Surgical History: Reports: Cataract Surgery Cardiovascular Surgical History: Reports: Coronary Artery Bypass, Other (See Below) Respiratory Surgical History: Reports: None GI Surgical History: Reports: Hernia, Abdominal Male Surgical History: Reports: None Endocrine Surgical History: Reports: None Neurological Surgical History: Reports: None Musculoskeletal Surgical History: Reports: None Oncologic Surgical History: Reports: None Social & Family History - Family History Family Medical History: Noncontributory Cardiac: Reports: CAD Respiratory: Reports: COPD GI: Reports: None : Reports: None Musculoskeletal: Reports: Arthritis, Back pain, Chronic Endocrine/Metabolic: Reports: Diabetes, type II - Tobacco Use Smoking Status *Q: Never Smoker - Caffeine Use Caffeine Use: Reports: None - Recreational Drug Use Recreational Drug Use: No - Living Situation & Occupation Occupation: Retired ED ROS GENERAL - Review of Systems Review Of Systems: ROS reveals no pertinent complaints other than HPI. ED EXAM, GENERAL - Physical Exam Exam: See Below (See dictation) Course - Vital Signs Last Recorded V/S: Last Vital Signs Temp 96.7 F 12/25/18 11:49 Pulse 110 H 12/25/18 11:49 Resp 16 12/25/18 11:49 BP 95/74 12/25/18 11:49 Pulse Ox 97 12/25/18 11:49 - Orders/Labs/Meds Orders: Active Orders 24 hr Category Date Time Status EKG Documentation Completion [RC] STAT Care 12/25/18 11:46 Active RT Aerosol Therapy [RC] ASDIRECTED Care 12/25/18 12:05 Active Sodium Chloride 0.9% [Saline Flush] Med 12/25/18 11:46 Active 10 ml FLUSH ASDIRECTED PRN Sodium Chloride 0.9% [Saline Flush] Med 12/25/18 11:46 Active 2.5 ml FLUSH ASDIRECTED PRN Saline Lock Insert [OM.PC] Stat Oth 12/25/18 11:46 Ordered Medication Orders Sodium Chloride (Saline Flush) 10 ml FLUSH ASDIRECTED PRN PRN Reason: Keep Vein Open Sodium Chloride (Saline Flush) 2.5 ml FLUSH ASDIRECTED PRN PRN Reason: Keep Vein Open Labs: Laboratory Tests 12/25/18 12/25/18 12/25/18 Range/Units 12:05 12:05 12:05 WBC 8.60 (4.0-11.0) K/uL RBC 2.92 L (4.50-5.90) M/uL Hgb 9.6 L (13.0-17.0) g/dL Hct 29.3 L (38.0-50.0) % MCV 100.3 H (80.0-98.0) fL MCH 32.9 H (27.0-32.0) pg MCHC 32.8 (31.0-37.0) g/dL RDW Std Deviation 50.4 (28.0-62.0) fl RDW Coeff of Mark 14 (11.0-15.0) % Plt Count 306 (150-400) K/uL MPV 9.90 (7.40-12.00) fL Neut % (Auto) 78.7 (48.0-80.0) % Lymph % (Auto) 13.1 L (16.0-40.0) % [place] % (Auto) 4.8 (0.0-15.0) % Eos % (Auto) 2.9 (0.0-7.0) % Baso % (Auto) 0.5 (0.0-1.5) % Neut # (Auto) 6.8 H (1.4-5.7) K/uL Lymph # (Auto) 1.1 (0.6-2.4) K/uL [place] # (Auto) 0.4 (0.0-0.8) K/uL Eos # (Auto) 0.3 (0.0-0.7) K/uL Baso # (Auto) 0.0 (0.0-0.1) K/uL Nucleated RBC % 0.0 /100WBC Nucleated RBCs # 0 K/uL INR 1.05 Sodium 134 L (136-148) mmol/L Potassium 4.7 (3.5-5.1) mmol/L Chloride 100 (98-107) mmol/L Carbon Dioxide 21.0 (21.0-32.0) mmol/L BUN 53 H (7.0-18.0) mg/dL Creatinine 1.8 H (0.8-1.3) mg/dL Est Cr Clr Drug Dosing 26.84 mL/min Estimated GFR (MDRD) 36.4 ml/min Glucose 273 H (74-106) mg/dL Calcium 9.6 (8.5-10.1) mg/dL Total Bilirubin 0.5 (0.2-1.0) mg/dL AST 16 (15-37) IU/L ALT 31 (14-63) IU/L Alkaline Phosphatase 83 (46-116) U/L Troponin I 0.057 H (0.000-0.056) ng/mL B-Natriuretic Peptide (<100) PG/ML Total Protein 7.3 (6.4-8.2) g/dL Albumin 3.5 (3.4-5.0) g/dL Globulin 3.8 (2.6-4.0) g/dL Albumin/Globulin Ratio 0.9 (0.9-1.6) 12/25/18 Range/Units 12:05 WBC (4.0-11.0) K/uL RBC (4.50-5.90) M/uL Hgb (13.0-17.0) g/dL Hct (38.0-50.0) % MCV (80.0-98.0) fL MCH (27.0-32.0) pg MCHC (31.0-37.0) g/dL RDW Std Deviation (28.0-62.0) fl RDW Coeff of Mark (11.0-15.0) % Plt Count (150-400) K/uL MPV (7.40-12.00) fL Neut % (Auto) (48.0-80.0) % Lymph % (Auto) (16.0-40.0) % [place] % (Auto) (0.0-15.0) % Eos % (Auto) (0.0-7.0) % Baso % (Auto) (0.0-1.5) % Neut # (Auto) (1.4-5.7) K/uL Lymph # (Auto) (0.6-2.4) K/uL [place] # (Auto) (0.0-0.8) K/uL Eos # (Auto) (0.0-0.7) K/uL Baso # (Auto) (0.0-0.1) K/uL Nucleated RBC % /100WBC Nucleated RBCs # K/uL INR Sodium (136-148) mmol/L Potassium (3.5-5.1) mmol/L Chloride (98-107) mmol/L Carbon Dioxide (21.0-32.0) mmol/L BUN (7.0-18.0) mg/dL Creatinine (0.8-1.3) mg/dL Est Cr Clr Drug Dosing mL/min Estimated GFR (MDRD) ml/min Glucose (74-106) mg/dL Calcium (8.5-10.1) mg/dL Total Bilirubin (0.2-1.0) mg/dL AST (15-37) IU/L ALT (14-63) IU/L Alkaline Phosphatase (46-116) U/L Troponin I (0.000-0.056) ng/mL B-Natriuretic Peptide 1207 H (<100) PG/ML Total Protein (6.4-8.2) g/dL Albumin (3.4-5.0) g/dL Globulin (2.6-4.0) g/dL Albumin/Globulin Ratio (0.9-1.6) Meds: Medications Generic Name Dose Route Start Last Admin Trade Name Freq PRN Reason Stop Dose Admin Sodium Chloride 10 ml 12/25/18 11:46 Saline Flush FLUSH ASDIRECTED PRN Keep Vein Open Sodium Chloride 2.5 ml 12/25/18 11:46 Saline Flush FLUSH ASDIRECTED PRN Keep Vein Open Discontinued Medications Generic Name Dose Route Start Last Admin Trade Name Freq PRN Reason Stop Dose Admin Albuterol/Ipratropium 3 ml 12/25/18 12:04 12/25/18 12:17 Duoneb 3.0-0.5 Mg/3 Ml NEB 12/25/18 12:05 3 ml ONETIME ONE Administration Aspirin 324 mg 12/25/18 12:46 12/25/18 13:06 Aspirin PO 12/25/18 12:47 162 mg ONETIME ONE Administration Furosemide 20 mg 12/25/18 13:13 12/25/18 13:22 Lasix IVPUSH 12/25/18 13:14 Not Given NOW ONE Furosemide 20 mg 12/25/18 13:14 12/25/18 13:23 Lasix PO 12/25/18 13:15 Not Given ONETIME ONE Furosemide Confirm 12/25/18 13:18 12/25/18 13:22 Lasix Administered 12/25/18 13:19 Not Given Dose 40 mg .ROUTE .STK-MED ONE Furosemide 20 mg 12/25/18 13:22 12/25/18 13:24 Lasix PO 12/25/18 13:23 20 mg ONETIME ONE Administration Furosemide Confirm 12/25/18 13:21 12/25/18 13:29 Lasix Administered 12/25/18 13:22 Not Given Dose 40 mg .ROUTE .STK-MED ONE Lorazepam 0.5 mg 12/25/18 13:00 12/25/18 13:07 Ativan PO 12/25/18 13:01 0.5 mg ONETIME ONE Administration Departure - Departure Time of Disposition: 13:25 Disposition: Home, Self-Care 01 Clinical Impression: Elevated troponin, History of kidney disease, Noncompliance with medication regimen Acute exacerbation of CHF (congestive heart failure) Qualifiers: Heart failure type: diastolic Qualified Code(s): I50.33 - Acute on chronic diastolic (congestive) heart failure Anemia Qualifiers: Anemia type: unspecified type Qualified Code(s): D64.9 - Anemia, unspecified - Discharge Information Instructions: Heart Failure, [id number] Referrals: PCP,Unknown [Primary Care Provider] - Forms: ED Department Discharge Additional Instructions: The following information is given to patients seen in the emergency department who are being discharged to home. This information is to outline your options for follow-up care. We provide all patients seen in our emergency department with a follow-up referral. The need for follow-up, as well as the timing and circumstances, are variable depending upon the specifics of your emergency department visit. If you don't have a primary care physician on staff, we will provide you with a referral. We always advise you to contact your personal physician following an emergency department visit to inform them of the circumstance of the visit and for follow-up with them and/or the need for any referrals to a consulting specialist. The emergency department will also refer you to a specialist when appropriate. This referral assures that you have the opportunity for follow-up care with a specialist. All of these measure are taken in an effort to provide you with optimal care, which includes your follow-up. Under all circumstances we always encourage you to contact your private physician who remains a resource for coordinating your care. When calling for follow-up care, please make the office aware that this follow-up is from your recent emergency room visit. If for any reason you are refused follow-up, please contact the [facility] Emergency Department at and asked to speak to the emergency department charge nurse. [facility] [address] [place] [address] [facility] [address] [place] [id number] 1. You are prescribed Furoside (Lasix) 20mg daily. Please take this as directed. This will help with your shortness of breath. Please follow up with your primary care provider to have your medications reevaluated as you expressed confusion about your home medications. 2. Use nebulizer and inhaler as needed for shortness of breath. 3. Follow up with your primary care provider (Dr. Moran) and senior management consultant. Talk with Dr. Moran in regards to anxiety as we discussed. 4. Return to the ED as needed and as discussed. - My Orders Last 24 Hours: My Active Orders 12/25/18 11:46 EKG Documentation Completion [RC] STAT Sodium Chloride 0.9% [Saline Flush] 10 ml FLUSH ASDIRECTED PRN Sodium Chloride 0.9% [Saline Flush] 2.5 ml FLUSH ASDIRECTED PRN Saline Lock Insert [OM.PC] Stat 12/25/18 12:05 RT Aerosol Therapy [RC] ASDIRECTED - Assessment/Plan Last 24 Hours: My Active Orders 12/25/18 11:46 EKG Documentation Completion [RC] STAT Sodium Chloride 0.9% [Saline Flush] 10 ml FLUSH ASDIRECTED PRN Sodium Chloride 0.9% [Saline Flush] 2.5 ml FLUSH ASDIRECTED PRN Saline Lock Insert [OM.PC] Stat 12/25/18 12:05 RT Aerosol Therapy [RC] ASDIRECTED
[2018-12-25] MEDS ORDERED: Aspirin 81 MG Tab.Chew PO ONE (12:46)
[2018-12-25] MEDS ORDERED: LORazepam 0.5 MG Tab PO ONE (13:00)
[2018-12-25] MEDS ORDERED: Furosemide 40 MG/4 ML VIAL IVPUSH ONE (13:13)
[2018-12-25] MEDS ORDERED: Furosemide 20 MG Tab PO ONE (13:14)
--- NOTE | 2018-12-25 13:17 | CR ---
Indication: Pain. Shortness of breath. Technique: A single AP portable view of the chest was obtained. Comparison: December 21, 2018. Findings: Both costophrenic angles are not included on this exam. The heart is borderline in size. Median sternotomy wires are seen. No infiltrate or pneumothorax is identified. Impression: Stable chest x-ray. Dictated by Julieta Santos MD @ Dec 25 2018 1:15PM Signed by Dr. Julieta Santos @ Dec 25 2018 1:16PM
[2018-12-25] MEDS ORDERED: Furosemide 40 MG Tab ONE ×2 (13:18→13:21)
[2018-12-25] MEDS ORDERED: Furosemide 40 MG Tab PO ONE (13:22)
[2018-12-25 13:54] VITALS: BP 104/73
== END 2018-12-25 13:35 | disposition home or self-care (01) ==
LOC: MW.ED 11:38
DX: I13.0 Hypertensive heart and chronic kidney disease with heart failure and stage 1 through stage 4 chronic kidney disease, or unspecified chronic kidney disease (principal); I50.33 Acute on chronic diastolic (congestive) heart failure; N18.9 Chronic kidney disease, unspecified; D63.1 Anemia in chronic kidney disease; I25.10 Atherosclerotic heart disease of native coronary artery without angina pectoris; E11.22 Type 2 diabetes mellitus with diabetic chronic kidney disease; Z91.14 Patient's other noncompliance with medication regimen; Z88.2 Allergy status to sulfonamides; Z88.8 Allergy status to other drugs, medicaments and biological substances; Z79.899 Other long term (current) drug therapy; Z79.84 Long term (current) use of oral hypoglycemic drugs; Z79.82 Long term (current) use of aspirin; Z95.5 Presence of coronary angioplasty implant and graft
CPT/HCPCS: 71045; 80053; 83880; 84484; 85025; 85610; 93005; 94640; 99285; A9270; J7620-GY

== ENCOUNTER 2018-12-26 13:08 | Emergency (ER) | payer MEDICARE, OTHER ==
[2018-12-26] MEDS ORDERED: Sodium Chloride 0.9% 2.5 ML Syringe FLUSH PRN (13:19)
[2018-12-26] MEDS ORDERED: Sodium Chloride 0.9% 10 ML Syringe FLUSH PRN (13:19)
--- NOTE | 2018-12-26 13:22 | EDM.PDOC ---
ED HPI GENERAL MEDICAL PROBLEM - General Chief Complaint: Respiratory Problem Stated Complaint: SHORTNESS OF BREATH Time Seen by Provider: 12/26/18 13:21 Source of Information: Reports: Patient History Limitations: Reports: No Limitations - History of Present Illness INITIAL COMMENTS - FREE TEXT/NARRATIVE: HISTORY AND PHYSICAL: History of present illness: Patient is an 83-year-old male presents to the ED with complaint of shortness of breath. He was transferred to [facility] in [place] within an NSTEMI and had stent placement on 12/15. He does see a certified orthotist practice manager in [place] and has an appointment this month. Patient was recently discharged from our hospital 3 days ago after being admitted for shortness of breath and elevated troponin. Elevated troponin thought to be due to recent cardiac stenting. He was discharged home as his troponins were trending down. He returned to the ED yesterday for shortness of breath was found to have a minimally elevated troponin and an elevated BNP. Patient was offered admission but declined. He states he has not had any chest pain since his discharge from [facility] and reports the shortness of breath is just with activity and occasionally when lying flat. He has not been taking his Lasix regularly and states that today he decided to take 100 mg rather than his usual 20 mg because he felt that he probably had some fluid in his chest. He denies any chest pain, left arm or jaw pain, diaphoresis, nausea, vomiting, diarrhea, abdominal pain, headache, blurry vision. He states he does feel there is some component of anxiety because he feels short of breath that makes her anxious and shortness of breath worse. Past medical history significant for CAD with CABG and stenting, COPD, hypertension, hyperlipidemia, diabetes. He reports he has a follow-up with Dr. Moran tomorrow. Review of systems: As per history of present illness and below otherwise all systems reviewed and negative. Past medical history: As per history of present illness and as reviewed below otherwise noncontributory. Surgical history: As per history of present illness and as reviewed below otherwise noncontributory. Social history: No reported history of drug or alcohol abuse. Family history: As per history of present illness and as reviewed below otherwise noncontributory. Physical exam: General: Patient sitting comfortably in no acute distress and nontoxic appearing HEENT: Atraumatic, normocephalic, pupils reactive, negative for conjunctival pallor or scleral icterus, mucous membranes moist, throat clear, neck supple, nontender, trachea midline. No meningeal signs. Lungs: Clear to auscultation, breath sounds equal bilaterally, chest nontender. Heart: S1S2, regular, negative for clicks, rubs, or overt murmur. Abdomen: Soft, nondistended, nontender. Negative for masses or hepatosplenomegaly. Negative for costovertebral tenderness. Pelvis: Stable nontender. Genitourinary: Deferred. Rectal: Deferred. Extremities: Atraumatic, negative for cords or calf pain. Neurovascular unremarkable. Neuro: Awake, alert, oriented. Cranial nerves II through XII unremarkable. Cerebellum unremarkable. Motor and sensory unremarkable throughout. Exam nonfocal. Notes: I discussed patient with his primary care provider, Dr. Moran, that I offered patient admission vs following up tomorrow at his appointment. Patient would like to see Dr. Moran tomorrow and prefers not to be admitted at this time and Dr. Moran is agreeable to this. Prior to discharging patient expresses to me that he feels he is having a lot of anxiety, he is waking up in the middle of the night feeling like he has to catch his breath. This occurs whether or not he is sitting or lying flat. His chest x-ray was normal, lungs CTA, and no LE edema on exam. His BNP was elevated but patient does not clinically appear to be volume overloaded today. Also note that his blood pressure was 80/56, 94/70 after therapeutics. He states he normally runs low and denies any dizziness or lightheadedness. Diagnostics: CBC, CMP, BNP, EKG, CXR Therapeutics: 500mL NS IV Prescriptions: None Impression: Dyspnea Plan: 1. Take your medications as prescribed 2. Follow up with primary care provider 3. Return to ED as needed as discussed Definitive disposition and diagnosis as appropriate pending reevaluation and review of above. - Related Data Allergies Allergy/AdvReac Type Severity Reaction Status Date / Time Sulfa (Sulfonamide Allergy Severe Nausea and Verified 12/26/18 13:14 Antibiotics) Vomiting Xohkrho-Rsc-Ild Reductase Allergy Mild Renal Verified 12/26/18 13:14 Inhibitor Failure Home Meds: Home Meds Arginine HCl [l-Arginine] 1,000 mg PO BID 01/14/17 [History] Folic Acid 1 mg PO DAILY 01/14/17 [History] Glucosamine [Glucosamine Sulfate] 500 mg PO BID 01/14/17 [History] Multivitamin [Multi-Vitamin Daily] 0 mg PO DAILY 01/14/17 [History] Nitroglycerin [IJP: Nitroglycerin] 0.4 mg SL ASDIRECTED PRN 01/14/17 [History] metFORMIN [Glucophage] 500 mg PO BID 04/11/18 [History] Cholecalciferol (Vitamin D3) [Vitamin D3] 2,000 units PO DAILY 05/18/18 [History ] Ubidecarenone [Co Q-10] 100 mg PO DAILY 05/18/18 [History] Digoxin 0.125 mg PO DAILY 12/15/18 [History] Furosemide 20 mg PO DAILY 12/15/18 [History] traMADol [Ultram] 50 mg PO Q12H 12/15/18 [History] Albuterol [Ventolin HFA] 1 puff INH Q6H PRN #1 inhaler 12/22/18 [Rx] Albuterol/Ipratropium [DuoNeb 3.0-0.5 MG/3 ML] 3 ml INH Q4H PRN 30 Days #1 neb 12/22/18 [Rx] Aspirin [Adult Aspirin] 81 mg PO DAILY 30 Days #30 tablet. 12/22/18 [Rx] Carvedilol 6.25 mg PO BID 30 Days #60 tablet 12/22/18 [Rx] Iron Polysaccharide Complex [Ferric X-150] 150 mg PO DAILY 30 Days #30 capsule 12/22/18 [Rx] Lisinopril 2.5 mg PO DAILY 30 Days #30 tablet 12/22/18 [Rx] Sertraline [Zoloft] 25 mg PO DAILY 30 Days #30 tablet 12/22/18 [Rx] Ticagrelor [Brilinta] 90 mg PO BID 30 Days #60 tablet 12/22/18 [Rx] glipiZIDE [Glucotrol] 2.5 mg PO DAILY 30 Days #30 tablet 12/22/18 [Rx] Past Medical History HEENT History: Reports: Impaired Vision Other HEENT History: wears glasses Cardiovascular History: Reports: Aneurysm, Bypass, CAD, Heart Failure, High Cholesterol, Hypertension, Prior Cardiac Arrest, Stents Other Cardiovascular History: 3 heart attacks, heart chamber dysfunction, aortic heart valve narrowing, leaky mitral valve, abdominal aortic aneurysm Respiratory History: Reports: None Other Respiratory History: dust related pneumonia Gastrointestinal History: Reports: Hiatal Hernia Genitourinary History: Reports: Chronic Renal Insuffiency Other Genitourinary History: "kidney damage" Musculoskeletal History: Reports: None Neurological History: Reports: None Psychiatric History: Reports: None Endocrine/Metabolic History: Reports: Diabetes, Type II Other Endocrine/Metabolic History: "borderline diabetic" Hematologic History: Reports: None Immunologic History: Reports: None Oncologic (Cancer) History: Reports: None Dermatologic History: Reports: None - Infectious Disease History Infectious Disease History: Reports: XZA-Ygkeyhogkg-Unbtrsqsg Enterobacteriaceae , Measles, Mumps, Other (See Below) Other Infectious Disease History: childhood - Past Surgical History Head Surgeries/Procedures: Reports: None HEENT Surgical History: Reports: Cataract Surgery Cardiovascular Surgical History: Reports: Coronary Artery Bypass, Other (See Below) Respiratory Surgical History: Reports: None GI Surgical History: Reports: Hernia, Abdominal Male Surgical History: Reports: None Endocrine Surgical History: Reports: None Neurological Surgical History: Reports: None Musculoskeletal Surgical History: Reports: None Oncologic Surgical History: Reports: None Dermatological Surgical History: Reports: None Social & Family History - Family History Family Medical History: Noncontributory Cardiac: Reports: CAD Respiratory: Reports: COPD GI: Reports: None : Reports: None Musculoskeletal: Reports: Arthritis, Back pain, Chronic Endocrine/Metabolic: Reports: Diabetes, type II - Tobacco Use Smoking Status *Q: Former Smoker Used Tobacco, but Quit: Yes Month/Year Tobacco Last Used: 11 years - Caffeine Use Caffeine Use: Reports: None - Recreational Drug Use Recreational Drug Use: No - Living Situation & Occupation Occupation: Retired ED ROS GENERAL - Review of Systems Review Of Systems: ROS reveals no pertinent complaints other than HPI. ED EXAM, GENERAL - Physical Exam Exam: See Below (See dictation) Course - Vital Signs Last Recorded V/S: Last Vital Signs Temp 97.2 F 12/26/18 13:15 Pulse 92 12/26/18 14:29 Resp 16 12/26/18 14:29 BP 94/70 12/26/18 14:29 Pulse Ox 97 12/26/18 14:29 - Orders/Labs/Meds Orders: Active Orders 24 hr Category Date Time Status Sodium Chloride 0.9% [Normal Saline] 500 ml Med 02/04/19 13:30 Active IV STAT Sodium Chloride 0.9% [Saline Flush] Med 12/26/18 13:19 Active 10 ml FLUSH ASDIRECTED PRN Sodium Chloride 0.9% [Saline Flush] Med 12/26/18 13:19 Active 2.5 ml FLUSH ASDIRECTED PRN Saline Lock Insert [OM.PC] Stat Oth 12/26/18 13:19 Ordered Medication Orders Sodium Chloride (Normal Saline) 500 mls @ 999 mls/hr IV STAT TAMEKA Last Admin: 12/26/18 14:31 Dose: 999 mls/hr Sodium Chloride (Saline Flush) 10 ml FLUSH ASDIRECTED PRN PRN Reason: Keep Vein Open Sodium Chloride (Saline Flush) 2.5 ml FLUSH ASDIRECTED PRN PRN Reason: Keep Vein Open Labs: Laboratory Tests 12/26/18 12/26/18 12/26/18 Range/Units 13:15 13:15 13:15 WBC 11.52 H (4.0-11.0) K/uL RBC 3.18 L (4.50-5.90) M/uL Hgb 10.5 L (13.0-17.0) g/dL Hct 31.7 L (38.0-50.0) % MCV 99.7 H (80.0-98.0) fL MCH 33.0 H (27.0-32.0) pg MCHC 33.1 (31.0-37.0) g/dL RDW Std Deviation 50.7 (28.0-62.0) fl RDW Coeff of Mark 14 (11.0-15.0) % Plt Count 321 (150-400) K/uL MPV 10.00 (7.40-12.00) fL Neut % (Auto) 79.0 (48.0-80.0) % Lymph % (Auto) 10.4 L (16.0-40.0) % Bland % (Auto) 8.7 (0.0-15.0) % Eos % (Auto) 1.5 (0.0-7.0) % Baso % (Auto) 0.4 (0.0-1.5) % Neut # (Auto) 9.1 H (1.4-5.7) K/uL Lymph # (Auto) 1.2 (0.6-2.4) K/uL Bland # (Auto) 1.0 H (0.0-0.8) K/uL Eos # (Auto) 0.2 (0.0-0.7) K/uL Baso # (Auto) 0.1 (0.0-0.1) K/uL Nucleated RBC % 0.0 /100WBC Nucleated RBCs # 0 K/uL Sodium 132 L (136-148) mmol/L Potassium 4.0 (3.5-5.1) mmol/L Chloride 95 L (98-107) mmol/L Carbon Dioxide 22.5 (21.0-32.0) mmol/L BUN 51 H (7.0-18.0) mg/dL Creatinine 1.9 H (0.8-1.3) mg/dL Est Cr Clr Drug Dosing 25.63 mL/min Estimated GFR (MDRD) 34.2 ml/min Glucose 199 H (74-106) mg/dL Calcium 9.3 (8.5-10.1) mg/dL Total Bilirubin 0.6 (0.2-1.0) mg/dL AST 20 (15-37) IU/L ALT 39 (14-63) IU/L Alkaline Phosphatase 94 (46-116) U/L B-Natriuretic Peptide 1709 H (<100) PG/ML Total Protein 8.0 (6.4-8.2) g/dL Albumin 3.9 (3.4-5.0) g/dL Globulin 4.1 H (2.6-4.0) g/dL Albumin/Globulin Ratio 1.0 (0.9-1.6) Meds: Medications Generic Name Dose Route Start Last Admin Trade Name Freq PRN Reason Stop Dose Admin Sodium Chloride 500 mls @ 999 mls/hr 12/26/18 13:30 12/26/18 14:31 Normal Saline IV 999 mls/hr STAT TAMEKA Administration Sodium Chloride 10 ml 12/26/18 13:19 Saline Flush FLUSH ASDIRECTED PRN Keep Vein Open Sodium Chloride 2.5 ml 12/26/18 13:19 Saline Flush FLUSH ASDIRECTED PRN Keep Vein Open Departure - Departure Time of Disposition: 15:51 Disposition: Home, Self-Care 01 Condition: Good Clinical Impression: Dyspnea - Discharge Information Referrals: PCP,Unknown [Primary Care Provider] - Forms: ED Department Discharge Additional Instructions: The following information is given to patients seen in the emergency department who are being discharged to home. This information is to outline your options for follow-up care. We provide all patients seen in our emergency department with a follow-up referral. The need for follow-up, as well as the timing and circumstances, are variable depending upon the specifics of your emergency department visit. If you don't have a primary care physician on staff, we will provide you with a referral. We always advise you to contact your personal physician following an emergency department visit to inform them of the circumstance of the visit and for follow-up with them and/or the need for any referrals to a consulting specialist. The emergency department will also refer you to a specialist when appropriate. This referral assures that you have the opportunity for follow-up care with a specialist. All of these measure are taken in an effort to provide you with optimal care, which includes your follow-up. Under all circumstances we always encourage you to contact your private physician who remains a resource for coordinating your care. When calling for follow-up care, please make the office aware that this follow-up is from your recent emergency room visit. If for any reason you are refused follow-up, please contact the [facility] Emergency Department at and asked to speak to the emergency department charge nurse. [facility] [address] [place] [id number] 1. Take your medications as prescribed 2. Follow up with primary care provider 3. Return to ED as needed as discussed - My Orders Last 24 Hours: My Active Orders 12/26/18 13:19 Sodium Chloride 0.9% [Saline Flush] 10 ml FLUSH ASDIRECTED PRN Sodium Chloride 0.9% [Saline Flush] 2.5 ml FLUSH ASDIRECTED PRN Saline Lock Insert [OM.PC] Stat 12/26/18 13:30 Sodium Chloride 0.9% [Normal Saline] 500 ml IV STAT - Assessment/Plan Last 24 Hours: My Active Orders 12/26/18 13:19 Sodium Chloride 0.9% [Saline Flush] 10 ml FLUSH ASDIRECTED PRN Sodium Chloride 0.9% [Saline Flush] 2.5 ml FLUSH ASDIRECTED PRN Saline Lock Insert [OM.PC] Stat 12/26/18 13:30 Sodium Chloride 0.9% [Normal Saline] 500 ml IV STAT
[2018-12-26] MEDS ORDERED: Sodium Chloride 0.9% 500 ML IV SCH (13:30)
--- NOTE | 2018-12-26 14:23 | CR ---
EXAMINATION: Portable chest radiograph. HISTORY: Shortness of breath. FINDINGS: The trachea is midline. The cardiomediastinal silhouette is within normal limits. No pulmonary infiltrates, effusions or pneumothorax. Mild basilar atelectasis. Calcified granuloma within the left apex. Osseous structures appear unremarkable. Median sternotomy wires are noted. IMPRESSION: No acute cardiopulmonary process.
[2018-12-26 16:21] VITALS: BP 101/73
== END 2018-12-26 16:15 | disposition home or self-care (01) ==
LOC: MW.ED 13:08
DX: R06.00 Dyspnea, unspecified (principal); E11.22 Type 2 diabetes mellitus with diabetic chronic kidney disease; I50.9 Heart failure, unspecified; N18.9 Chronic kidney disease, unspecified; Z88.0 Allergy status to penicillin; Z88.2 Allergy status to sulfonamides; Z79.899 Other long term (current) drug therapy
CPT/HCPCS: 71045; 80053; 83880; 85025; 96360; 99285; J7040

== ENCOUNTER 2019-01-07 14:46 | Emergency (ER) | payer MEDICARE, OTHER ==
--- NOTE | 2019-01-07 15:11 | EDM.PDOC ---
ED HPI GENERAL MEDICAL PROBLEM - General Chief Complaint: ENT Problem Stated Complaint: NOSE BLEED Time Seen by Provider: 01/07/19 14:55 - History of Present Illness INITIAL COMMENTS - FREE TEXT/NARRATIVE: HISTORY AND PHYSICAL: History of present illness: Patient is a 83-year-old male extensive cardiac history who presents with concern of right-sided epistaxis [place] without associated trauma he has had this problem intermittently including as recently as last week. Review of systems: As per history of present illness and below otherwise all systems reviewed and negative. Past medical history: As per history of present illness and as reviewed below otherwise noncontributory. Surgical history: As per history of present illness and as reviewed below otherwise noncontributory. Social history: No reported history of drug or alcohol abuse. Family history: As per history of present illness and as reviewed below otherwise noncontributory. Physical exam: HEENT: Atraumatic, normocephalic, pupils reactive, negative for conjunctival pallor or scleral icterus, mucous membranes moist, throat clear, neck supple, nontender, trachea midline. Right-sided epistaxis noted with oozing from the right nares no identifiable source noted Lungs: Clear to auscultation, breath sounds equal bilaterally, chest nontender. Heart: S1S2, regular, negative for clicks, rubs, or JVD. Abdomen: Soft, nondistended, nontender. Negative for masses or hepatosplenomegaly. Negative for costovertebral tenderness. Pelvis: Stable nontender. Genitourinary: Deferred. Rectal: Deferred. Extremities: Atraumatic, negative for cords or calf pain. Neurovascular unremarkable. Neuro: Awake, alert, oriented. Cranial nerves II through XII unremarkable. Cerebellum unremarkable. Motor and sensory unremarkable throughout. Exam nonfocal. Diagnostics: CBC PT/INR Therapeutics: Rhino Rocket placed mustache dressing applied bleeding well controlled Impression: #1 right-sided epistaxis status post Rhino Rocket placed Definitive disposition and diagnosis as appropriate pending reevaluation and review of above. - Related Data Allergies Allergy/AdvReac Type Severity Reaction Status Date / Time Sulfa (Sulfonamide Allergy Severe Nausea and Verified 12/26/18 13:14 Antibiotics) Vomiting Ubdnnjm-Igl-Eas Reductase Allergy Mild Renal Verified 12/26/18 13:14 Inhibitor Failure Home Meds: Home Meds Arginine HCl [l-Arginine] 1,000 mg PO BID 01/14/17 [History] Folic Acid 1 mg PO DAILY 01/14/17 [History] Glucosamine [Glucosamine Sulfate] 500 mg PO BID 01/14/17 [History] Multivitamin [Multi-Vitamin Daily] 0 mg PO DAILY 01/14/17 [History] Nitroglycerin [IJP: Nitroglycerin] 0.4 mg SL ASDIRECTED PRN 01/14/17 [History] metFORMIN [Glucophage] 500 mg PO BID 04/11/18 [History] Cholecalciferol (Vitamin D3) [Vitamin D3] 2,000 units PO DAILY 05/18/18 [History ] Ubidecarenone [Co Q-10] 100 mg PO DAILY 05/18/18 [History] Digoxin 0.125 mg PO DAILY 12/15/18 [History] Furosemide 20 mg PO DAILY 12/15/18 [History] traMADol [Ultram] 50 mg PO Q12H 12/15/18 [History] Albuterol [Ventolin HFA] 1 puff INH Q6H PRN #1 inhaler 12/22/18 [Rx] Albuterol/Ipratropium [DuoNeb 3.0-0.5 MG/3 ML] 3 ml INH Q4H PRN 30 Days #1 neb 12/22/18 [Rx] Aspirin [Adult Aspirin] 81 mg PO DAILY 30 Days #30 tablet. 12/22/18 [Rx] Carvedilol 6.25 mg PO BID 30 Days #60 tablet 12/22/18 [Rx] Iron Polysaccharide Complex [Ferric X-150] 150 mg PO DAILY 30 Days #30 capsule 12/22/18 [Rx] Lisinopril 2.5 mg PO DAILY 30 Days #30 tablet 12/22/18 [Rx] Sertraline [Zoloft] 25 mg PO DAILY 30 Days #30 tablet 12/22/18 [Rx] Ticagrelor [Brilinta] 90 mg PO BID 30 Days #60 tablet 12/22/18 [Rx] glipiZIDE [Glucotrol] 2.5 mg PO DAILY 30 Days #30 tablet 12/22/18 [Rx] Past Medical History HEENT History: Reports: Impaired Vision Other HEENT History: wears glasses Cardiovascular History: Reports: Aneurysm, Bypass, CAD, Heart Failure, High Cholesterol, Hypertension, Prior Cardiac Arrest, Stents Other Cardiovascular History: 3 heart attacks, heart chamber dysfunction, aortic heart valve narrowing, leaky mitral valve, abdominal aortic aneurysm Respiratory History: Reports: None Other Respiratory History: dust related pneumonia Gastrointestinal History: Reports: Hiatal Hernia Genitourinary History: Reports: Chronic Renal Insuffiency Other Genitourinary History: "kidney damage" Musculoskeletal History: Reports: None Neurological History: Reports: None Psychiatric History: Reports: None Endocrine/Metabolic History: Reports: Diabetes, Type II Other Endocrine/Metabolic History: "borderline diabetic" Hematologic History: Reports: None Immunologic History: Reports: None Oncologic (Cancer) History: Reports: None Dermatologic History: Reports: None - Infectious Disease History Infectious Disease History: Reports: MSZ-Dktgmnuoky-Ybcfeprwd Enterobacteriaceae , Measles, Mumps, Other (See Below) Other Infectious Disease History: childhood - Past Surgical History Head Surgeries/Procedures: Reports: None HEENT Surgical History: Reports: Cataract Surgery Cardiovascular Surgical History: Reports: Coronary Artery Bypass, Other (See Below) Respiratory Surgical History: Reports: None GI Surgical History: Reports: Hernia, Abdominal Male Surgical History: Reports: None Endocrine Surgical History: Reports: None Neurological Surgical History: Reports: None Musculoskeletal Surgical History: Reports: None Oncologic Surgical History: Reports: None Dermatological Surgical History: Reports: None Social & Family History - Family History Family Medical History: Noncontributory Cardiac: Reports: CAD Respiratory: Reports: COPD GI: Reports: None : Reports: None Musculoskeletal: Reports: Arthritis, Back pain, Chronic Endocrine/Metabolic: Reports: Diabetes, type II - Caffeine Use Caffeine Use: Reports: None - Living Situation & Occupation Occupation: Retired ED ROS GENERAL - Review of Systems Review Of Systems: ROS reveals no pertinent complaints other than HPI. ED EXAM, GENERAL - Physical Exam Exam: See Below (See dictation) Course - Orders/Labs/Meds Orders: Active Orders 24 hr Category Date Time Status CBC WITH AUTO DIFF [HEME] Stat Lab 01/07/19 14:59 Ordered INR,PT,PROTHROMBIN TIME [COAG] Stat Lab 01/07/19 14:53 Ordered Departure - Departure Time of Disposition: 15:10 Disposition: Home, Self-Care 01 Condition: Good Clinical Impression: Epistaxis - Discharge Information Referrals: PCP,None [Primary Care Provider] - Additional Instructions: The following information is given to patients seen in the emergency department who are being discharged to home. This information is to outline your options for follow-up care. We provide all patients seen in our emergency department with a follow-up referral. The need for follow-up, as well as the timing and circumstances, are variable depending upon the specifics of your emergency department visit. If you don't have a primary care physician on staff, we will provide you with a referral. We always advise you to contact your personal physician following an emergency department visit to inform them of the circumstance of the visit and for follow-up with them and/or the need for any referrals to a consulting specialist. The emergency department will also refer you to a specialist when appropriate. This referral assures that you have the opportunity for followup care with a specialist. All of these measure are taken in an effort to provide you with optimal care, which includes your followup. Under all circumstances we always encourage you to contact your private physician who remains a resource for coordinating your care. When calling for followup care, please make the office aware that this follow-up is from your recent emergency room visit. If for any reason you are refused follow-up, please contact the [facility] emergency department at and asked to speak to the emergency department charge nurse. Augmentin as prescribed Rhino Rocket as directed follow-up 48 hours for reevaluation and removal return as needed as discussed[] - My Orders Last 24 Hours: My Active Orders 01/07/19 14:59 CBC WITH AUTO DIFF [HEME] Stat - Assessment/Plan Last 24 Hours: My Active Orders 01/07/19 14:59 CBC WITH AUTO DIFF [HEME] Stat
[2019-01-07 16:19] VITALS: BP 90/60
== END 2019-01-07 16:15 | disposition home or self-care (01) ==
LOC: MW.ED 14:46
DX: R04.0 Epistaxis (principal); I25.10 Atherosclerotic heart disease of native coronary artery without angina pectoris; I50.9 Heart failure, unspecified; E78.00 Pure hypercholesterolemia, unspecified; I13.0 Hypertensive heart and chronic kidney disease with heart failure and stage 1 through stage 4 chronic kidney disease, or unspecified chronic kidney disease; E11.22 Type 2 diabetes mellitus with diabetic chronic kidney disease; N18.9 Chronic kidney disease, unspecified; Z88.2 Allergy status to sulfonamides; Z88.8 Allergy status to other drugs, medicaments and biological substances; Z79.899 Other long term (current) drug therapy; Z79.82 Long term (current) use of aspirin; Z79.84 Long term (current) use of oral hypoglycemic drugs
CPT/HCPCS: 36415; 85025; 85610; 99283

== ENCOUNTER 2019-01-09 13:41 | Emergency (ER) | payer MEDICARE, OTHER ==
--- NOTE | 2019-01-09 14:12 | EDM.PDOC ---
ED HPI GENERAL MEDICAL PROBLEM - General Chief Complaint: ENT Problem Stated Complaint: FOLLOW UP Time Seen by Provider: 01/09/19 14:11 Source of Information: Reports: Patient - History of Present Illness INITIAL COMMENTS - FREE TEXT/NARRATIVE: HISTORY AND PHYSICAL: History of present illness: []Patient presents for removal of a nasal balloon device Epistaxis resolved No fever nausea vomiting chills sweats Review of systems: As per history of present illness and below otherwise all systems reviewed and negative. Past medical history: As per history of present illness and as reviewed below otherwise noncontributory. Surgical history: As per history of present illness and as reviewed below otherwise noncontributory. Social history: No reported history of drug or alcohol abuse. Family history: As per history of present illness and as reviewed below otherwise noncontributory. Physical exam: HEENT: Atraumatic, normocephalic, pupils reactive, negative for conjunctival pallor or scleral icterus, mucous membranes moist, throat clear, neck supple, nontender, trachea midline. further epistaxis Lungs: Clear to auscultation, breath sounds equal bilaterally, chest nontender. Heart: S1S2, regular, negative for clicks, rubs, or JVD. Abdomen: Soft, nondistended, nontender. Negative for masses or hepatosplenomegaly. Negative for costovertebral tenderness. Pelvis: Stable nontender. Genitourinary: Deferred. Rectal: Deferred. Extremities: Atraumatic, negative for cords or calf pain. Neurovascular unremarkable. Neuro: Awake, alert, oriented. Cranial nerves II through XII unremarkable. Cerebellum unremarkable. Motor and sensory unremarkable throughout. Exam nonfocal. Diagnostics: [] been interval Therapeutics: Removal of Rhino Rocket Impression: [] post axis resolved Rhino Rocket removed Definitive disposition and diagnosis as appropriate pending reevaluation and review of above. - Related Data Allergies Allergy/AdvReac Type Severity Reaction Status Date / Time Sulfa (Sulfonamide Allergy Severe Nausea and Verified 01/09/19 14:03 Antibiotics) Vomiting Rbhwdrx-Iga-Van Reductase Allergy Mild Renal Verified 01/09/19 14:03 Inhibitor Failure Home Meds: Home Meds Arginine HCl [l-Arginine] 1,000 mg PO BID 01/14/17 [History] Folic Acid 1 mg PO DAILY 01/14/17 [History] Glucosamine [Glucosamine Sulfate] 500 mg PO BID 01/14/17 [History] Multivitamin [Multi-Vitamin Daily] 0 mg PO DAILY 01/14/17 [History] Nitroglycerin [IJP: Nitroglycerin] 0.4 mg SL ASDIRECTED PRN 01/14/17 [History] metFORMIN [Glucophage] 500 mg PO BID 04/11/18 [History] Cholecalciferol (Vitamin D3) [Vitamin D3] 2,000 units PO DAILY 05/18/18 [History ] Ubidecarenone [Co Q-10] 100 mg PO DAILY 05/18/18 [History] Digoxin 0.125 mg PO DAILY 12/15/18 [History] Furosemide 20 mg PO DAILY 12/15/18 [History] traMADol [Ultram] 50 mg PO Q12H 12/15/18 [History] Albuterol [Ventolin HFA] 1 puff INH Q6H PRN #1 inhaler 12/22/18 [Rx] Albuterol/Ipratropium [DuoNeb 3.0-0.5 MG/3 ML] 3 ml INH Q4H PRN 30 Days #1 neb 12/22/18 [Rx] Aspirin [Adult Aspirin] 81 mg PO DAILY 30 Days #30 tablet. 12/22/18 [Rx] Carvedilol 6.25 mg PO BID 30 Days #60 tablet 12/22/18 [Rx] Iron Polysaccharide Complex [Ferric X-150] 150 mg PO DAILY 30 Days #30 capsule 12/22/18 [Rx] Lisinopril 2.5 mg PO DAILY 30 Days #30 tablet 12/22/18 [Rx] Sertraline [Zoloft] 25 mg PO DAILY 30 Days #30 tablet 12/22/18 [Rx] Ticagrelor [Brilinta] 90 mg PO BID 30 Days #60 tablet 12/22/18 [Rx] glipiZIDE [Glucotrol] 2.5 mg PO DAILY 30 Days #30 tablet 12/22/18 [Rx] Past Medical History HEENT History: Reports: Impaired Vision Other HEENT History: wears glasses Cardiovascular History: Reports: Aneurysm, Bypass, CAD, Heart Failure, High Cholesterol, Hypertension, Prior Cardiac Arrest, Stents Other Cardiovascular History: 3 heart attacks, heart chamber dysfunction, aortic heart valve narrowing, leaky mitral valve, abdominal aortic aneurysm Respiratory History: Reports: None Other Respiratory History: dust related pneumonia Gastrointestinal History: Reports: Hiatal Hernia Genitourinary History: Reports: Chronic Renal Insuffiency Other Genitourinary History: "kidney damage" Musculoskeletal History: Reports: None Neurological History: Reports: None Psychiatric History: Reports: None Endocrine/Metabolic History: Reports: Diabetes, Type II Other Endocrine/Metabolic History: "borderline diabetic" Hematologic History: Reports: None Immunologic History: Reports: None Oncologic (Cancer) History: Reports: None Dermatologic History: Reports: None - Infectious Disease History Infectious Disease History: Reports: Chicken Pox, Measles, Mumps Other Infectious Disease History: childhood - Past Surgical History Head Surgeries/Procedures: Reports: None HEENT Surgical History: Reports: Cataract Surgery Cardiovascular Surgical History: Reports: Coronary Artery Bypass, Other (See Below) Respiratory Surgical History: Reports: None GI Surgical History: Reports: Hernia, Abdominal Male Surgical History: Reports: None Endocrine Surgical History: Reports: None Neurological Surgical History: Reports: None Musculoskeletal Surgical History: Reports: None Oncologic Surgical History: Reports: None Dermatological Surgical History: Reports: None Social & Family History - Family History Family Medical History: Noncontributory Cardiac: Reports: CAD Respiratory: Reports: COPD GI: Reports: None : Reports: None Musculoskeletal: Reports: Arthritis, Back pain, Chronic Endocrine/Metabolic: Reports: Diabetes, type II - Tobacco Use Smoking Status *Q: Former Smoker Used Tobacco, but Quit: Yes Month/Year Tobacco Last Used: 10 - Caffeine Use Caffeine Use: Reports: Coffee - Recreational Drug Use Recreational Drug Use: No - Living Situation & Occupation Occupation: Retired ED ROS GENERAL - Review of Systems Review Of Systems: See Below ED EXAM, GENERAL - Physical Exam Exam: See Below Course - Vital Signs Last Recorded V/S: Last Vital Signs Temp 97.2 F 01/09/19 14:05 Pulse 109 H 01/09/19 14:05 Resp 18 01/09/19 14:05 BP 106/70 01/09/19 14:05 Pulse Ox 96 01/09/19 14:05 Departure - Departure Time of Disposition: 14:12 Disposition: Home, Self-Care 01 Condition: Good Clinical Impression: Epistaxis - Discharge Information Referrals: PCP,Unknown [Primary Care Provider] - Additional Instructions: The following information is given to patients seen in the emergency department who are being discharged to home. This information is to outline your options for follow-up care. We provide all patients seen in our emergency department with a follow-up referral. The need for follow-up, as well as the timing and circumstances, are variable depending upon the specifics of your emergency department visit. If you don't have a primary care physician on staff, we will provide you with a referral. We always advise you to contact your personal physician following an emergency department visit to inform them of the circumstance of the visit and for follow-up with them and/or the need for any referrals to a consulting specialist. The emergency department will also refer you to a specialist when appropriate. This referral assures that you have the opportunity for follow-up care with a specialist. All of these measure are taken in an effort to provide you with optimal care, which includes your follow-up. Under all circumstances we always encourage you to contact your private physician who remains a resource for coordinating your care. When calling for follow-up care, please make the office aware that this follow-up is from your recent emergency room visit. If for any reason you are refused follow-up, please contact the [facility] emergency department at and asked to speak to the emergency department charge nurse.
[2019-01-09 14:49] VITALS: BP 96/62
== END 2019-01-09 14:49 | disposition home or self-care (01) ==
LOC: MW.ED 13:41
DX: R04.0 Epistaxis (principal); I13.0 Hypertensive heart and chronic kidney disease with heart failure and stage 1 through stage 4 chronic kidney disease, or unspecified chronic kidney disease; I50.9 Heart failure, unspecified; N18.9 Chronic kidney disease, unspecified; E11.22 Type 2 diabetes mellitus with diabetic chronic kidney disease; I25.10 Atherosclerotic heart disease of native coronary artery without angina pectoris; Z95.1 Presence of aortocoronary bypass graft; Z98.49 Cataract extraction status, unspecified eye; Z79.82 Long term (current) use of aspirin; Z79.84 Long term (current) use of oral hypoglycemic drugs; Z79.899 Other long term (current) drug therapy; Z87.891 Personal history of nicotine dependence
CPT/HCPCS: 99282

== ENCOUNTER 2019-02-05 08:56 | Emergency (ER) | payer MEDICARE, OTHER ==
[2019-02-05] MEDS ORDERED: Amoxicillin/Clavulanate K 875-125 MG Tab PO ONE (09:08)
--- NOTE | 2019-02-05 09:08 | EDM.PDOC ---
ED HPI GENERAL MEDICAL PROBLEM - General Chief Complaint: ENT Problem Stated Complaint: NOSE BLEED Time Seen by Provider: 02/05/19 09:03 - History of Present Illness INITIAL COMMENTS - FREE TEXT/NARRATIVE: HISTORY AND PHYSICAL: History of present illness: Patient is an 83-year-old white male who presents with concern of right-sided epistaxis he's had similar episodes in the past he was recently on anticoagulants which were discontinued he denies any trauma or any other bleeding diathesis he denies any other complaints. This started this a.m. Review of systems: As per history of present illness and below otherwise all systems reviewed and negative. Past medical history: As per history of present illness and as reviewed below otherwise noncontributory. Surgical history: As per history of present illness and as reviewed below otherwise noncontributory. Social history: No reported history of drug or alcohol abuse. Family history: As per history of present illness and as reviewed below otherwise noncontributory. Physical exam: HEENT: Atraumatic, normocephalic, pupils reactive, negative for conjunctival pallor or scleral icterus, mucous membranes moist, throat clear, neck supple, nontender, trachea midline. Right-sided epistaxis noted with unclear source. Lungs: Clear to auscultation, breath sounds equal bilaterally, chest nontender. Heart: S1S2, regular, negative for clicks, rubs, or JVD. Abdomen: Soft, nondistended, nontender. Negative for masses or hepatosplenomegaly. Negative for costovertebral tenderness. Pelvis: Stable nontender. Genitourinary: Deferred. Rectal: Deferred. Extremities: Atraumatic, negative for cords or calf pain. Neurovascular unremarkable. Neuro: Awake, alert, oriented. Cranial nerves II through XII unremarkable. Cerebellum unremarkable. Motor and sensory unremarkable throughout. Exam nonfocal. Diagnostics: CBC PT/INR Therapeutics: Rhino Rocket was placed after nasal clots cleared with blowing inflated secured mustache dressing applied patient tolerated procedure well Impression: Right-sided epistaxis status post Rhino Rocket placement Definitive disposition and diagnosis as appropriate pending reevaluation and review of above. - Related Data Allergies Allergy/AdvReac Type Severity Reaction Status Date / Time Sulfa (Sulfonamide Allergy Severe Nausea and Verified 02/05/19 09:04 Antibiotics) Vomiting Wzlmvch-Rmp-Lsl Reductase Allergy Mild Renal Verified 02/05/19 09:04 Inhibitor Failure Home Meds: Home Meds Arginine HCl [l-Arginine] 1,000 mg PO BID 01/14/17 [History] Folic Acid 1 mg PO DAILY 01/14/17 [History] Glucosamine [Glucosamine Sulfate] 500 mg PO BID 01/14/17 [History] Multivitamin [Multi-Vitamin Daily] 0 mg PO DAILY 01/14/17 [History] Nitroglycerin [IJP: Nitroglycerin] 0.4 mg SL ASDIRECTED PRN 01/14/17 [History] metFORMIN [Glucophage] 500 mg PO BID 04/11/18 [History] Cholecalciferol (Vitamin D3) [Vitamin D3] 2,000 units PO DAILY 05/18/18 [History ] Ubidecarenone [Co Q-10] 100 mg PO DAILY 05/18/18 [History] Digoxin 0.125 mg PO DAILY 12/15/18 [History] Furosemide 20 mg PO DAILY 12/15/18 [History] traMADol [Ultram] 50 mg PO Q12H 12/15/18 [History] Albuterol [Ventolin HFA] 1 puff INH Q6H PRN #1 inhaler 12/22/18 [Rx] Albuterol/Ipratropium [DuoNeb 3.0-0.5 MG/3 ML] 3 ml INH Q4H PRN 30 Days #1 neb 12/22/18 [Rx] Aspirin [Adult Aspirin] 81 mg PO DAILY 30 Days #30 tablet. 12/22/18 [Rx] Carvedilol 6.25 mg PO BID 30 Days #60 tablet 12/22/18 [Rx] Iron Polysaccharide Complex [Ferric X-150] 150 mg PO DAILY 30 Days #30 capsule 12/22/18 [Rx] Lisinopril 2.5 mg PO DAILY 30 Days #30 tablet 12/22/18 [Rx] Sertraline [Zoloft] 25 mg PO DAILY 30 Days #30 tablet 12/22/18 [Rx] Ticagrelor [Brilinta] 90 mg PO BID 30 Days #60 tablet 12/22/18 [Rx] glipiZIDE [Glucotrol] 2.5 mg PO DAILY 30 Days #30 tablet 12/22/18 [Rx] Past Medical History HEENT History: Reports: Impaired Vision Other HEENT History: wears glasses Cardiovascular History: Reports: Aneurysm, Bypass, CAD, Heart Failure, High Cholesterol, Hypertension, Prior Cardiac Arrest, Stents Other Cardiovascular History: 3 heart attacks, heart chamber dysfunction, aortic heart valve narrowing, leaky mitral valve, abdominal aortic aneurysm Respiratory History: Reports: None Other Respiratory History: dust related pneumonia Gastrointestinal History: Reports: Hiatal Hernia Genitourinary History: Reports: Chronic Renal Insuffiency Other Genitourinary History: "kidney damage" Musculoskeletal History: Reports: None Neurological History: Reports: None Psychiatric History: Reports: None Endocrine/Metabolic History: Reports: Diabetes, Type II Other Endocrine/Metabolic History: "borderline diabetic" Hematologic History: Reports: None Immunologic History: Reports: None Oncologic (Cancer) History: Reports: None Dermatologic History: Reports: None - Infectious Disease History Infectious Disease History: Reports: Chicken Pox, Measles, Mumps Other Infectious Disease History: childhood - Past Surgical History Head Surgeries/Procedures: Reports: None HEENT Surgical History: Reports: Cataract Surgery Cardiovascular Surgical History: Reports: Coronary Artery Bypass, Other (See Below) Respiratory Surgical History: Reports: None GI Surgical History: Reports: Hernia, Abdominal Male Surgical History: Reports: None Endocrine Surgical History: Reports: None Neurological Surgical History: Reports: None Musculoskeletal Surgical History: Reports: None Oncologic Surgical History: Reports: None Dermatological Surgical History: Reports: None Social & Family History - Family History Family Medical History: Noncontributory Cardiac: Reports: CAD Respiratory: Reports: COPD GI: Reports: None : Reports: None Musculoskeletal: Reports: Arthritis, Back pain, Chronic Endocrine/Metabolic: Reports: Diabetes, type II - Caffeine Use Caffeine Use: Reports: Coffee - Living Situation & Occupation Occupation: Retired ED ROS GENERAL - Review of Systems Review Of Systems: ROS reveals no pertinent complaints other than HPI. ED EXAM, GENERAL - Physical Exam Exam: See Below (See dictation) Departure - Departure Time of Disposition: 09:06 Disposition: Home, Self-Care 01 Condition: Good Clinical Impression: Epistaxis - Discharge Information Referrals: PCP,Unknown [Primary Care Provider] - Additional Instructions: The following information is given to patients seen in the emergency department who are being discharged to home. This information is to outline your options for follow-up care. We provide all patients seen in our emergency department with a follow-up referral. The need for follow-up, as well as the timing and circumstances, are variable depending upon the specifics of your emergency department visit. If you don't have a primary care physician on staff, we will provide you with a referral. We always advise you to contact your personal physician following an emergency department visit to inform them of the circumstance of the visit and for follow-up with them and/or the need for any referrals to a consulting specialist. The emergency department will also refer you to a specialist when appropriate. This referral assures that you have the opportunity for followup care with a specialist. All of these measure are taken in an effort to provide you with optimal care, which includes your followup. Under all circumstances we always encourage you to contact your private physician who remains a resource for coordinating your care. When calling for followup care, please make the office aware that this follow-up is from your recent emergency room visit. If for any reason you are refused follow-up, please contact the [facility] emergency department at and asked to speak to the emergency department charge nurse. Rhino Rocket as directed Augmentin as prescribed follow-up in the emergency department or private doctor in 48 hours for reevaluation and removal
[2019-02-05 10:31] VITALS: BP 100/60
== END 2019-02-05 10:20 | disposition home or self-care (01) ==
LOC: MW.ED 08:56
DX: R04.0 Epistaxis (principal); I13.0 Hypertensive heart and chronic kidney disease with heart failure and stage 1 through stage 4 chronic kidney disease, or unspecified chronic kidney disease; E11.22 Type 2 diabetes mellitus with diabetic chronic kidney disease; N18.9 Chronic kidney disease, unspecified; I50.9 Heart failure, unspecified; E78.00 Pure hypercholesterolemia, unspecified; Z88.2 Allergy status to sulfonamides; Z88.8 Allergy status to other drugs, medicaments and biological substances; Z79.899 Other long term (current) drug therapy; Z79.84 Long term (current) use of oral hypoglycemic drugs
CPT/HCPCS: 30903; 36415; 85025; 85610; 99283; A9270

== ENCOUNTER 2019-02-07 08:44 | Emergency (ER) | payer MEDICARE, OTHER ==
--- NOTE | 2019-02-07 08:53 | EDM.PDOC ---
ED HPI GENERAL MEDICAL PROBLEM - General Chief Complaint: ENT Problem Stated Complaint: ROCKET REMOVED Time Seen by Provider: 02/07/19 08:51 - History of Present Illness INITIAL COMMENTS - FREE TEXT/NARRATIVE: HISTORY AND PHYSICAL: History of present illness: Patient is an 83-year-old white male who is 2 days status post Rhino Rocket placement who returns for reevaluation and Rhino Rocket removal he said no problems and has no complaints Review of systems: As per history of present illness and below otherwise all systems reviewed and negative. Past medical history: As per history of present illness and as reviewed below otherwise noncontributory. Surgical history: As per history of present illness and as reviewed below otherwise noncontributory. Social history: No reported history of drug or alcohol abuse. Family history: As per history of present illness and as reviewed below otherwise noncontributory. Physical exam: Rhino Rocket in place is no evidence of active bleeding this was removed without complication and patient tolerated removal well and again no recurrence of epistaxis physical exam otherwise unremarkable Diagnostics: None Therapeutics: Rhino Rocket removal Impression: #1 reevaluation epistaxis Rhino Rocket removal Definitive disposition and diagnosis as appropriate pending reevaluation and review of above. - Related Data Allergies Allergy/AdvReac Type Severity Reaction Status Date / Time Sulfa (Sulfonamide Allergy Severe Nausea and Verified 02/07/19 08:51 Antibiotics) Vomiting Quqlxor-Xcu-Mtd Reductase Allergy Mild Renal Verified 02/07/19 08:51 Inhibitor Failure Home Meds: Home Meds Arginine HCl [l-Arginine] 1,000 mg PO BID 01/14/17 [History] Folic Acid 1 mg PO DAILY 01/14/17 [History] Glucosamine [Glucosamine Sulfate] 500 mg PO BID 01/14/17 [History] Multivitamin [Multi-Vitamin Daily] 0 mg PO DAILY 01/14/17 [History] Nitroglycerin [IJP: Nitroglycerin] 0.4 mg SL ASDIRECTED PRN 01/14/17 [History] metFORMIN [Glucophage] 500 mg PO BID 04/11/18 [History] Cholecalciferol (Vitamin D3) [Vitamin D3] 2,000 units PO DAILY 05/18/18 [History ] Ubidecarenone [Co Q-10] 100 mg PO DAILY 05/18/18 [History] Digoxin 0.125 mg PO DAILY 12/15/18 [History] Furosemide 20 mg PO DAILY 12/15/18 [History] traMADol [Ultram] 50 mg PO Q12H 12/15/18 [History] Albuterol [Ventolin HFA] 1 puff INH Q6H PRN #1 inhaler 12/22/18 [Rx] Albuterol/Ipratropium [DuoNeb 3.0-0.5 MG/3 ML] 3 ml INH Q4H PRN 30 Days #1 neb 12/22/18 [Rx] Aspirin [Adult Aspirin] 81 mg PO DAILY 30 Days #30 tablet. 12/22/18 [Rx] Carvedilol 6.25 mg PO BID 30 Days #60 tablet 12/22/18 [Rx] Iron Polysaccharide Complex [Ferric X-150] 150 mg PO DAILY 30 Days #30 capsule 12/22/18 [Rx] Lisinopril 2.5 mg PO DAILY 30 Days #30 tablet 12/22/18 [Rx] Sertraline [Zoloft] 25 mg PO DAILY 30 Days #30 tablet 12/22/18 [Rx] glipiZIDE [Glucotrol] 2.5 mg PO DAILY 30 Days #30 tablet 12/22/18 [Rx] Past Medical History HEENT History: Reports: Impaired Vision Other HEENT History: wears glasses Cardiovascular History: Reports: Aneurysm, Bypass, CAD, Heart Failure, High Cholesterol, Hypertension, Prior Cardiac Arrest, Stents Other Cardiovascular History: 3 heart attacks, heart chamber dysfunction, aortic heart valve narrowing, leaky mitral valve, abdominal aortic aneurysm Respiratory History: Reports: None Other Respiratory History: dust related pneumonia Gastrointestinal History: Reports: Hiatal Hernia Genitourinary History: Reports: Chronic Renal Insuffiency Other Genitourinary History: "kidney damage" Musculoskeletal History: Reports: None Neurological History: Reports: None Psychiatric History: Reports: None Endocrine/Metabolic History: Reports: Diabetes, Type II Other Endocrine/Metabolic History: "borderline diabetic" Hematologic History: Reports: None Immunologic History: Reports: None Oncologic (Cancer) History: Reports: None Dermatologic History: Reports: None - Infectious Disease History Infectious Disease History: Reports: Chicken Pox, Measles, Mumps Other Infectious Disease History: childhood - Past Surgical History Head Surgeries/Procedures: Reports: None HEENT Surgical History: Reports: Cataract Surgery Cardiovascular Surgical History: Reports: Coronary Artery Bypass, Other (See Below) Respiratory Surgical History: Reports: None GI Surgical History: Reports: Hernia, Abdominal Male Surgical History: Reports: None Endocrine Surgical History: Reports: None Neurological Surgical History: Reports: None Musculoskeletal Surgical History: Reports: None Oncologic Surgical History: Reports: None Dermatological Surgical History: Reports: None Social & Family History - Family History Family Medical History: Noncontributory Cardiac: Reports: CAD Respiratory: Reports: COPD GI: Reports: None : Reports: None Musculoskeletal: Reports: Arthritis, Back pain, Chronic Endocrine/Metabolic: Reports: Diabetes, type II - Caffeine Use Caffeine Use: Reports: Coffee - Living Situation & Occupation Occupation: Retired ED ROS GENERAL - Review of Systems Review Of Systems: ROS reveals no pertinent complaints other than HPI. ED EXAM, GENERAL - Physical Exam Exam: See Below (See dictation) Departure - Departure Time of Disposition: 08:53 Disposition: Home, Self-Care 01 Condition: Good Clinical Impression: Encounter for medical screening examination, History of epistaxis - Discharge Information Additional Instructions: The following information is given to patients seen in the emergency department who are being discharged to home. This information is to outline your options for follow-up care. We provide all patients seen in our emergency department with a follow-up referral. The need for follow-up, as well as the timing and circumstances, are variable depending upon the specifics of your emergency department visit. If you don't have a primary care physician on staff, we will provide you with a referral. We always advise you to contact your personal physician following an emergency department visit to inform them of the circumstance of the visit and for follow-up with them and/or the need for any referrals to a consulting specialist. The emergency department will also refer you to a specialist when appropriate. This referral assures that you have the opportunity for followup care with a specialist. All of these measure are taken in an effort to provide you with optimal care, which includes your followup. Under all circumstances we always encourage you to contact your private physician who remains a resource for coordinating your care. When calling for followup care, please make the office aware that this follow-up is from your recent emergency room visit. If for any reason you are refused follow-up, please contact the [facility] emergency department at and asked to speak to the emergency department charge nurse. Continue current medications follow primary medical doctor as needed as discussed return as needed as discussed
[2019-02-07 09:17] VITALS: BP 90/63
== END 2019-02-07 09:16 | disposition home or self-care (01) ==
LOC: MW.ED 08:44
DX: Z48.00 Encounter for change or removal of nonsurgical wound dressing (principal); I13.0 Hypertensive heart and chronic kidney disease with heart failure and stage 1 through stage 4 chronic kidney disease, or unspecified chronic kidney disease; I50.9 Heart failure, unspecified; N18.9 Chronic kidney disease, unspecified; E11.22 Type 2 diabetes mellitus with diabetic chronic kidney disease; I25.10 Atherosclerotic heart disease of native coronary artery without angina pectoris; Z95.5 Presence of coronary angioplasty implant and graft; Z95.1 Presence of aortocoronary bypass graft; Z88.2 Allergy status to sulfonamides; Z88.8 Allergy status to other drugs, medicaments and biological substances; Z79.82 Long term (current) use of aspirin; Z79.899 Other long term (current) drug therapy; Z79.84 Long term (current) use of oral hypoglycemic drugs; Z98.49 Cataract extraction status, unspecified eye
CPT/HCPCS: 99281; 99282

== ENCOUNTER 2019-02-13 04:10 | Emergency (ER) | payer MEDICARE, OTHER ==
--- NOTE | 2019-02-13 04:19 | EDM.PDOC ---
ED HPI GENERAL MEDICAL PROBLEM - General Chief Complaint: General Stated Complaint: AMBULANCE Time Seen by Provider: 02/13/19 04:15 - History of Present Illness INITIAL COMMENTS - FREE TEXT/NARRATIVE: HISTORY AND PHYSICAL: History of present illness: Patient is an 83-year-old white male an extensive past medical history including coronary artery disease chronic renal disease who presents with a concern of generalized weakness patient states he felt generalized weakness and nausea without associated chest pain or vomiting. He was noted per paramedics to have 2 nitroglycerin patches on he states that in retrospect remembers his daughter reminding him to pull one on this morning and he forgot to take it off. These were removed upon arrival Review of systems: As per history of present illness and below otherwise all systems reviewed and negative. Past medical history: As per history of present illness and as reviewed below otherwise noncontributory. Surgical history: As per history of present illness and as reviewed below otherwise noncontributory. Social history: No reported history of drug or alcohol abuse. Family history: As per history of present illness and as reviewed below otherwise noncontributory. Physical exam: HEENT: Atraumatic, normocephalic, pupils reactive, negative for conjunctival pallor or scleral icterus, mucous membranes dry, throat clear, neck supple, nontender, trachea midline. Lungs: Slightly diminished at the bases scant basilar crackles breath sounds equal bilaterally, chest nontender. Heart: S1S2, regular, negative for clicks, rubs, or JVD. Abdomen: Soft, protuberant no localized abdominal tenderness Negative for masses or hepatosplenomegaly. Negative for costovertebral tenderness. Pelvis: Stable nontender. Genitourinary: Deferred. Rectal: Deferred. Extremities: Atraumatic, negative for cords or calf pain. Neurovascular unremarkable. 2+ pretibial edema Neuro: Awake, alert, oriented. Cranial nerves II through XII unremarkable. Cerebellum unremarkable. Motor and sensory unremarkable throughout. Exam nonfocal. Diagnostics: CBC CMP troponin and BNP PT/INR chest x-ray EKG CT chest abdomen and pelvis Therapeutics: IV O2 monitor Impression: #1 generalized weakness #2 history of coronary artery disease #3 abdominal pain with history of abdominal aortic aneurysm Definitive disposition and diagnosis as appropriate pending reevaluation and review of above. - Related Data Allergies Allergy/AdvReac Type Severity Reaction Status Date / Time Sulfa (Sulfonamide Allergy Severe Nausea and Verified 02/13/19 04:15 Antibiotics) Vomiting [id number] Reductase Allergy Mild Renal Verified 02/13/19 04:15 Inhibitor Failure Home Meds: Home Meds Arginine HCl [l-Arginine] 1,000 mg PO BID 01/14/17 [History] Folic Acid 1 mg PO DAILY 01/14/17 [History] Glucosamine [Glucosamine Sulfate] 500 mg PO BID 01/14/17 [History] Multivitamin [Multi-Vitamin Daily] 0 mg PO DAILY 01/14/17 [History] Nitroglycerin [IJP: Nitroglycerin] 0.4 mg SL ASDIRECTED PRN 01/14/17 [History] Cholecalciferol (Vitamin D3) [Vitamin D3] 2,000 units PO DAILY 05/18/18 [History ] Ubidecarenone [Co Q-10] 100 mg PO DAILY 05/18/18 [History] Furosemide 40 mg PO DAILY 12/15/18 [History] Albuterol [Ventolin HFA] 1 puff INH Q6H PRN #1 inhaler 12/22/18 [Rx] Albuterol/Ipratropium [DuoNeb 3.0-0.5 MG/3 ML] 3 ml INH Q4H PRN 30 Days #1 neb 12/22/18 [Rx] Aspirin [Adult Aspirin] 81 mg PO DAILY 30 Days #30 tablet. 12/22/18 [Rx] Carvedilol 6.25 mg PO BID 30 Days #60 tablet 12/22/18 [Rx] Iron Polysaccharide Complex [Ferric X-150] 150 mg PO DAILY 30 Days #30 capsule 12/22/18 [Rx] Lisinopril 2.5 mg PO DAILY 30 Days #30 tablet 12/22/18 [Rx] Sertraline [Zoloft] 25 mg PO DAILY 30 Days #30 tablet 12/22/18 [Rx] Past Medical History HEENT History: Reports: Impaired Vision Other HEENT History: wears glasses Cardiovascular History: Reports: Aneurysm, Bypass, CAD, Heart Failure, High Cholesterol, Hypertension, Prior Cardiac Arrest, Stents Other Cardiovascular History: 3 heart attacks, heart chamber dysfunction, aortic heart valve narrowing, leaky mitral valve, abdominal aortic aneurysm Respiratory History: Reports: None Other Respiratory History: dust related pneumonia Gastrointestinal History: Reports: Hiatal Hernia Genitourinary History: Reports: Chronic Renal Insuffiency Other Genitourinary History: "kidney damage" Musculoskeletal History: Reports: None Neurological History: Reports: None Psychiatric History: Reports: None Endocrine/Metabolic History: Reports: Diabetes, Type II Other Endocrine/Metabolic History: "borderline diabetic" Hematologic History: Reports: None Immunologic History: Reports: None Oncologic (Cancer) History: Reports: None Dermatologic History: Reports: None - Infectious Disease History Infectious Disease History: Reports: Chicken Pox, Measles, Mumps Other Infectious Disease History: childhood - Past Surgical History Head Surgeries/Procedures: Reports: None HEENT Surgical History: Reports: Cataract Surgery Cardiovascular Surgical History: Reports: Coronary Artery Bypass, Other (See Below) Respiratory Surgical History: Reports: None GI Surgical History: Reports: Hernia, Abdominal Male Surgical History: Reports: None Endocrine Surgical History: Reports: None Neurological Surgical History: Reports: None Musculoskeletal Surgical History: Reports: None Oncologic Surgical History: Reports: None Dermatological Surgical History: Reports: None Social & Family History - Family History Family Medical History: Noncontributory Cardiac: Reports: CAD Respiratory: Reports: COPD GI: Reports: None : Reports: None Musculoskeletal: Reports: Arthritis, Back pain, Chronic Endocrine/Metabolic: Reports: Diabetes, type II - Caffeine Use Caffeine Use: Reports: Coffee - Living Situation & Occupation Occupation: Retired ED ROS GENERAL - Review of Systems Review Of Systems: ROS reveals no pertinent complaints other than HPI. ED EXAM, GENERAL - Physical Exam Exam: See Below (See dictation) Course - Vital Signs Last Recorded V/S: Last Vital Signs Temp 35.6 C 02/13/19 04:13 Pulse 86 02/13/19 06:29 Resp 21 H 02/13/19 06:29 BP 92/65 02/13/19 06:29 Pulse Ox 98 02/13/19 06:29 - Orders/Labs/Meds Orders: Active Orders 24 hr Category Date Time Status Cardiac Monitoring [RC] . DIRECTED Care 02/13/19 04:24 Active EKG Documentation Completion [RC] STAT Care 02/13/19 04:24 Active UA W/STU RFLX IF INDICATED [URIN] Stat Lab 02/13/19 04:30 Ordered Saline Lock Insert [OM.PC] Stat Oth 02/13/19 04:24 Ordered Labs: Laboratory Tests 02/13/19 02/13/19 02/13/19 Range/Units 04:44 04:44 04:44 WBC 8.63 (4.0-11.0) K/uL RBC 2.72 L (4.50-5.90) M/uL Hgb 9.0 L (13.0-17.0) g/dL Hct 28.9 L (38.0-50.0) % MCV 106.3 H (80.0-98.0) fL MCH 33.1 H (27.0-32.0) pg MCHC 31.1 (31.0-37.0) g/dL RDW Std Deviation 65.6 H (28.0-62.0) fl RDW Coeff of Mark 17 H (11.0-15.0) % Plt Count 196 (150-400) K/uL MPV 10.20 (7.40-12.00) fL Neut % (Auto) 80.4 H (48.0-80.0) % Lymph % (Auto) 9.7 L (16.0-40.0) % Brown % (Auto) 6.3 (0.0-15.0) % Eos % (Auto) 2.1 (0.0-7.0) % Baso % (Auto) 1.5 (0.0-1.5) % Neut # (Auto) 6.9 H (1.4-5.7) K/uL Lymph # (Auto) 0.8 (0.6-2.4) K/uL Brown # (Auto) 0.5 (0.0-0.8) K/uL Eos # (Auto) 0.2 (0.0-0.7) K/uL Baso # (Auto) 0.1 (0.0-0.1) K/uL Nucleated RBC % 0.2 /100WBC Nucleated RBCs # 0 K/uL INR 1.36 Sodium 136 (136-148) mmol/L Potassium 5.6 H (3.5-5.1) mmol/L Chloride 102 (98-107) mmol/L Carbon Dioxide 21.9 (21.0-32.0) mmol/L BUN 63 H (7.0-18.0) mg/dL Creatinine 2.4 H (0.8-1.3) mg/dL Est Cr Clr Drug Dosing 19.98 mL/min Estimated GFR (MDRD) 26.1 ml/min Glucose 193 H (74-106) mg/dL Calcium 8.4 L (8.5-10.1) mg/dL Total Bilirubin 0.9 (0.2-1.0) mg/dL AST 107 H (15-37) IU/L ALT 207 H (14-63) IU/L Alkaline Phosphatase 124 H (46-116) U/L Troponin I 0.058 H* (0.000-0.056) ng/mL B-Natriuretic Peptide (<100) PG/ML Total Protein 5.9 L (6.4-8.2) g/dL Albumin 2.8 L (3.4-5.0) g/dL Globulin 3.1 (2.6-4.0) g/dL Albumin/Globulin Ratio 0.9 (0.9-1.6) 02/13/19 Range/Units 04:44 WBC (4.0-11.0) K/uL RBC (4.50-5.90) M/uL Hgb (13.0-17.0) g/dL Hct (38.0-50.0) % MCV (80.0-98.0) fL MCH (27.0-32.0) pg MCHC (31.0-37.0) g/dL RDW Std Deviation (28.0-62.0) fl RDW Coeff of Mark (11.0-15.0) % Plt Count (150-400) K/uL MPV (7.40-12.00) fL Neut % (Auto) (48.0-80.0) % Lymph % (Auto) (16.0-40.0) % Brown % (Auto) (0.0-15.0) % Eos % (Auto) (0.0-7.0) % Baso % (Auto) (0.0-1.5) % Neut # (Auto) (1.4-5.7) K/uL Lymph # (Auto) (0.6-2.4) K/uL Brown # (Auto) (0.0-0.8) K/uL Eos # (Auto) (0.0-0.7) K/uL Baso # (Auto) (0.0-0.1) K/uL Nucleated RBC % /100WBC Nucleated RBCs # K/uL INR Sodium (136-148) mmol/L Potassium (3.5-5.1) mmol/L Chloride (98-107) mmol/L Carbon Dioxide (21.0-32.0) mmol/L BUN (7.0-18.0) mg/dL Creatinine (0.8-1.3) mg/dL Est Cr Clr Drug Dosing mL/min Estimated GFR (MDRD) ml/min Glucose (74-106) mg/dL Calcium (8.5-10.1) mg/dL Total Bilirubin (0.2-1.0) mg/dL AST (15-37) IU/L ALT (14-63) IU/L Alkaline Phosphatase (46-116) U/L Troponin I (0.000-0.056) ng/mL B-Natriuretic Peptide 3532 H (<100) PG/ML Total Protein (6.4-8.2) g/dL Albumin (3.4-5.0) g/dL Globulin (2.6-4.0) g/dL Albumin/Globulin Ratio (0.9-1.6) Meds: Medications Discontinued Medications Generic Name Dose Route Start Last Admin Trade Name Freq PRN Reason Stop Dose Admin Sodium Chloride 500 mls @ 500 mls/hr 02/13/19 04:30 02/13/19 04:32 Normal Saline IV 500 mls/hr .BOLUS TAMEKA Administration Sodium Chloride 500 mls @ 999 mls/hr 02/13/19 04:30 Normal Saline IV .BOLUS TAMEKA Ondansetron HCl 4 mg 02/13/19 04:24 02/13/19 04:33 Zofran IVPUSH 02/13/19 04:25 4 mg ONETIME ONE Administration Ondansetron HCl Confirm 02/13/19 04:27 02/13/19 04:33 Zofran Administered 02/13/19 04:28 Not Given Dose 4 mg .ROUTE .STK-MED ONE Ondansetron HCl 4 mg 02/13/19 04:26 02/13/19 04:33 Zofran IVPUSH 02/13/19 04:27 Not Given ONETIME ONE Departure - Departure Time of Disposition: 06:43 Disposition: DC/Tfer to Acute Hospital 02 Condition: Good Clinical Impression: Abdominal aortic aneurysm, Abdominal pain, Generalized weakness, Renal insufficiency - Discharge Information Forms: ED Department Discharge - My Orders Last 24 Hours: My Active Orders 02/13/19 04:24 Cardiac Monitoring [RC] . DIRECTED EKG Documentation Completion [RC] STAT Saline Lock Insert [OM.PC] Stat 02/13/19 04:30 UA W/STU RFLX IF INDICATED [URIN] Stat - Assessment/Plan Last 24 Hours: My Active Orders 02/13/19 04:24 Cardiac Monitoring [RC] . DIRECTED EKG Documentation Completion [RC] STAT Saline Lock Insert [OM.PC] Stat 02/13/19 04:30 UA W/STU RFLX IF INDICATED [URIN] Stat
[2019-02-13] MEDS ORDERED: Ondansetron 4 MG/2 ML SDV IVPUSH ONE ×2 (04:24→04:26)
[2019-02-13] MEDS ORDERED: Ondansetron 4 MG/2 ML SDV ONE (04:27)
[2019-02-13] MEDS ORDERED: Sodium Chloride 0.9% 500 ML IV SCH ×2 (04:30)
--- NOTE | 2019-02-13 05:09 | CR ---
INDICATION: Shortness of breath TECHNIQUE: Chest radiograph 1 view COMPARISON: 12/26/2018 FINDINGS: Mediastinum: Previous median sternotomy and coronary artery bypass grafting (CABG) noted. Moderate cardiomegaly is noted without interval change. Lung: Left basilar atelectasis and small bilateral pleural effusions noted. A small stable granuloma seen in the left apex. No pneumothorax is identified. Musculoskeletal: Unremarkable for age. IMPRESSIONS: 1. Moderate cardiomegaly is noted without interval change. 2. Left basilar atelectasis and small bilateral pleural effusions noted. Dictated by Mehrdad Barragan MD @ 02/13/2019 5:08:42 AM Dictated by: Mehrdad Barragan MD @ 02/13/2019 05:08:47 (Electronically Signed)
--- NOTE | 2019-02-13 05:51 | CT ---
INDICATION: Chest, abdominal pain TECHNIQUE: CT Abdomen and pelvis without i.v. contrast. Coronal and sagittal reformats were obtained. COMPARISON: None FINDINGS: Lower chest: Small right pleural effusion and trace left pleural effusion seen. Centrilobular emphysema is present within the lower lobes. Moderate severe biventricular cardiomegaly is present. Severe anemia is present with the cardiac chambers appearing lucent with respect to the myocardium. Liver: Unremarkable. Spleen: Unremarkable. Pancreas: Unremarkable. Gallbladder: Unremarkable. Kidney: Unremarkable. No kidney or ureteral stones or obstruction seen. Adrenal: Unremarkable. Bowel: Severe sigmoid diverticulosis is present with no evidence of diverticulitis. The appendix is not identified. Vascular: An abdominal aortic aneurysm is present measuring 7.3 cm in maximal short axis diameter. It has a calcified internal flap present which may be due to chronic dissection. Lymph: Unremarkable. Peritoneum: Unremarkable. No pneumoperitoneum is seen. A small amount of abdominal ascites is seen. Small bilateral inguinal hernias are present containing fat and ascites fluid. Pelvis: Moderate distention of the bladder is present. There is a left bladder diverticulum measuring 4.4 cm. Soft tissue: Unremarkable. Bone: Unremarkable for age. IMPRESSIONS: 1. Small right pleural effusion and trace left pleural effusion seen. 2. An abdominal aortic aneurysm is present measuring 7.3 cm in maximal short axis diameter. It has a calcified internal flap present which may be due to chronic dissection. 3. A small amount of abdominal ascites is seen. Dictated by Mehrdad Barragan MD @ 02/13/2019 5:49:03 AM Please note that all CT scans at this facility use dose modulation, iterative reconstruction, and/or weight-based dosing when appropriate to reduce radiation dose to as low as reasonably achievable. Dictated by: Mehrdad Barragan MD @ 02/13/2019 05:49:07 (Electronically Signed)
--- NOTE | 2019-02-13 05:57 | CT ---
INDICATION: Chest pain TECHNIQUE: CT chest without i.v. contrast. Coronal and sagittal reformats were obtained. COMPARISON: None FINDINGS: Cardiovascular: Moderate biventricular cardiomegaly is present. Severe anemia is present with the cardiac chambers appearing lucent with respect to the myocardium. The pulmonary arteries are unremarkable in appearance. No sign of aneurysm seen in the thoracic aorta. The presence of aortic dissection cannot be evaluated without the use of intravenous contrast. Severe atherosclerotic calcifications are noted in the coronary arteries. Previous median sternotomy and coronary artery bypass grafting (CABG) noted. Mediastinum: No mass or adenopathy seen. Lung: Paraseptal emphysema and centrilobular emphysema noted bilaterally. Mild passive atelectasis is present in the right lower lobe. Pleura and pericardium: Small right and trace left pleural effusion seen. No significant pericardial effusion is present. Chest wall and axilla: No mass or adenopathy seen. Bone: Unremarkable for age. IMPRESSION: 1. Moderate biventricular cardiomegaly is present. 2. Small right and trace left pleural effusion seen. Dictated by Mehrdad Barragan MD @ 02/13/2019 5:56:48 AM Please note that all CT scans at this facility use dose modulation, iterative reconstruction, and/or weight-based dosing when appropriate to reduce radiation dose to as low as reasonably achievable. Dictated by: Mehrdad Barragan MD @ 02/13/2019 05:56:54 (Electronically Signed)
[2019-02-13 06:29] VITALS: BP 92/65
== END 2019-02-13 07:40 ==
LOC: MW.ED 04:10
DX: I71.4 Abdominal aortic aneurysm, without rupture (principal); I25.10 Atherosclerotic heart disease of native coronary artery without angina pectoris; R10.9 Unspecified abdominal pain; I13.0 Hypertensive heart and chronic kidney disease with heart failure and stage 1 through stage 4 chronic kidney disease, or unspecified chronic kidney disease; I50.9 Heart failure, unspecified; E78.00 Pure hypercholesterolemia, unspecified; E11.22 Type 2 diabetes mellitus with diabetic chronic kidney disease; N18.9 Chronic kidney disease, unspecified; Z88.2 Allergy status to sulfonamides; Z88.8 Allergy status to other drugs, medicaments and biological substances; Z79.899 Other long term (current) drug therapy; Z79.82 Long term (current) use of aspirin
CPT/HCPCS: 36415; 71045; 71250; 74176; 80053; 83880; 84484; 85025; 85610; 93005; 96374; 99285; J2405; J7040; 99284